=== PATIENT | female | born 2000 | race African-American/Black ===

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

== ENCOUNTER 2021-02-21 10:53 | Emergency (ER) | payer OTHER ==
--- OUTSIDE RECORDS SUMMARY | 2021-02-21 10:56 | XMS REPORT | Continuity of Care Document ---
:2000 Author Organization [facility] t Address [address] [place] [address] [address] [place] [address] Care Team Providers Name Role Phone Mode LUGO, Gene Attending Clinician KARMA MENDEZ Attending Clinician Unavailable KARMA MENDEZ Attending Clinician Unavailable Payers Payer Name Policy Type Policy Number Effective Date Expiration Date [address] [place] [employer] [id number] 2019 HEALTH 00:00:00 [facility] [id number] 2013 [facility] 00:00:00 Problems This patient has no known problems. Allergies, Adverse Reactions, Alerts Allergy Allergy Status Severity Reaction(s) Onset Inactive Treating Comm ents Source Name Type Date Date Clinician NO KNOWN Drug Active [facility] Medications This patient has no known medications. Procedures This patient has no known procedures. Encounters Start End Encounter Admission Attending Care Care Encounter Source Date/Time Date/Time Type Type Clinicians Facility Department ID 2020-06-06 2020-06-06 Telephone [facility] [id number] 00:00:00 00:00:00 Treu Garcia [id number] Yee [id number] [facility] [id number] [address] 2020-06-04 2020-06-04 [facility] [id number] 14:59:14 23:59:00 Encounter True Garcia [id number] eYe [id number] [place] [id number] 2020-06-04 2020-06-04 Outpatient TRUE MENDEZ [facility] [id number] Univers 15:00:00 15:00:00 TRUE MENDEZ [id number] [facility] 2020-06-04 2020-06-04 Outpatient TRUE STAFFORD [facility] [id number] [facility] 00:00:00 00:00:00 TRUE MENDEZ [facility] 2020-05-23 2020-05-23 Office Mode [facility] [id number] 10:21:54 12:02:57 Visit True Garcia [id number] [place] [id number] [place] [id number] [facility] 092 [facility] 2020-05-23 2020-05-23 Outpatient TRUE STAFFORD [facility] [id number] [facility] 10:00:00 10:00:00 TRUE MENDEZ [facility] Results This patient has no known results.
[2021-02-21] MEDS ORDERED: ONDANSETRON 4 MG/2 ML VIAL ONE (11:04)
[2021-02-21 11:08] LABS: Urine Blood Negative (Negative); Urine Glucose Negative (Negative); Urine Protein Trace (Negative); Urine Specific Gravity >=1.030 (1.005-1.030)
[2021-02-21 12:24] LABS: Protime INR 1.08
[2021-02-21 12:30] LABS: Absolute Lymphocytes (CBC) 0.3 K/uL (0.7-4.9); Basophils % 0.7 % (0-1.3); Hematocrit 40.3 % (36.0-45.0); Lymphocytes % 2.3 % (15.3-44.8); MPV 8.1 fL (7.6-11.3); RBC Red Blood Cell Count 4.98 M/uL (3.86-4.86)
[2021-02-21 12:47] LABS: ALT/SGPT 55 U/L (12-78); AST/SGOT 42 U/L (15-37); Albumin 3.9 g/dL (3.4-5.0); Alkaline Phosphatase 105 U/L (45-117); BUN Blood Urea Nitrogen 16 mg/dL (7-18); Bicarbonate 27 mmol/L (21-32); Bilirubin Direct 0.1 mg/dL (0-0.2); Bilirubin Total 0.8 mg/dL (0.2-1.0); Glucose Level 108 mg/dL (74-106); Lipase 58 U/L (73-393); Magnesium 2.2 mg/dL (1.8-2.4); NT PRO-BNP 10 pg/mL (<125); Potassium 4.3 mmol/L (3.5-5.1); Protein, Total 8.6 g/dL (6.4-8.2); Sodium Level 139 mmol/L (136-145); Troponin (Emerg Dept Use Only) < 0.02 ng/mL (0.0-0.045)
[2021-02-21 13:10] LABS: Blood Morphology Comment NOT SEEN (NOT SEEN); Platelet Estimate ADEQ
[2021-02-21] MEDS ORDERED: NA CHLORIDE 0.9% 1,000 ML ONE (13:32)
--- NOTE | 2021-02-21 14:18 | ER ---
Nurse's Notes [facility] Name: Oksana Horn Age: 20 yrs Sex: Female : 2000 Arrival Date: 02/21/2021 Time: 10:57 Bed 15 Private MD: Diagnosis: Syncope;Vomiting;Diarrhea Presentation: 02/21 10:58 Chief complaint: EMS states: Pt had syncopal episode while at work. [employer] [address] pt was jh6 alert on their arrival. Unknown length of loc. Coronavirus screen: Vaccine status: Patient reports being unvaccinated. Client denies travel out of the [place] in the last 14 days. Ebola Screen: Patient negative for fever greater than or equal to 101.5 degrees Fahrenheit, and additional compatible Ebola Virus Disease symptoms. Initial Sepsis Screen: Does the patient meet any 2 criteria? No. Patient's initial sepsis screen is negative. Does the patient have a suspected source of infection? No. Patient's initial sepsis screen is negative. Risk Assessment: Do you want to hurt yourself or someone else? Patient reports no desire to harm self or others. Onset of symptoms was February 21, 2021. 10:58 Method Of Arrival: EMS: [facility] 10:58 Acuity: FR[place] 3 6 Triage Assessment: 11:01 General: Appears in no apparent distress. comfortable, well groomed, well developed, jh6 well nourished, Behavior is calm, cooperative. Pain: Complains of pain in epigastric area Pain does not radiate. Pain currently is 3 out of 10 on a pain scale. Quality of pain is described as aching. 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 - Social history:: Smoking status: Patient denies any tobacco usage or history of. Screenin:00 Abuse screen: Denies threats or abuse. Nutritional screening: No deficits noted. [facility] Tuberculosis screening: No symptoms or risk factors identified. Fall Risk None identified. Assessment: 11:02 General: Appears in no apparent distress. comfortable, well groomed, Behavior is calm, jh6 cooperative. Pain: Complains of pain in epigastric area Pain currently is 3 out of 10 on a pain scale. Is continuous, Aggravated by eating, drinking. GI: Reports cramping, diarrhea, nausea. 12:30 Reassessment: Patient is alert, oriented x 3, equal unlabored respirations, skin 6 warm/dry/pink. Patient denies pain at this time. Patient states symptoms have improved. No longer feeling nauseated. 14:08 Reassessment: Patient and/or family updated on plan of care and expected duration. Pain [facility] level reassessed. Pt able to eat crackers and reports no nasuea at this time. Iv to rt ac infiltration, made aware. Vital Signs: 10:58 BP 124 / 51; Pulse 77; Resp 18; Temp 98.3(O); Pulse Ox 100% ; Weight 89.81 kg; Height 5 [facility] ft. 3 in. (160.02 cm); Pain 3/10; 12:35 BP 113 / 56; Pulse 73; Resp 18; Pulse Ox 100% ; 6 14:13 BP 112 / 54; Pulse 72; Resp 16; Pulse Ox 99% ; Pain 1/10; jh6 10:58 Body Mass Index 35.07 (89.81 kg, 160.02 cm) [facility] ED Course: 10:57 Patient arrived in ED. [facility] 10:57 Shivani Bone, KATHIA is Primary Nurse. [facility] 10:58 Wisam Duffy PA is PHCP. [facility] 10:58 Quinten Hoang MD is Attending Physician. [facility] 11:01 Triage completed. [facility] 11:11 Patient has correct armband on for positive identification. Placed in gown. Bed in low 5 position. Call light in reach. Side rails up X 1. Adult w/ patient. Warm blanket given. ekg monitor tech on. Pulse ox on. NIBP on. 11:11 EKG done, by ED staff, reviewed by Wisam SHEFFIELD. [facility] 11:30 Inserted saline lock: 22 gauge in right antecubital area, using aseptic technique. [facility] 12:46 Basic Metabolic Panel Sent. [facility] 12:46 LFT's Sent. [facility] 12:46 Magnesium Sent. [facility] 12:46 NT PRO-BNP Sent. [facility] 12:46 Troponin (emerg Dept Use Only) Sent. [facility] 12:46 Initial lab(s) drawn, by powerhouse laborer, Urine collected: clean catch specimen, clear. [facility] 14:00 No provider procedures requiring assistance completed. IV discontinued, intact, [facility] bleeding controlled, Pressure dressing applied. 14:42 Arm band placed on right wrist. [facility] Administered Medications: 14:43 Discontinued: NS 0.9% 1000 ml IV at 1 bolus Per protocol; 1000 mL bolus [facility] 11:32 Drug: Zofran (Ondansetron) 4 mg Route: IVP; Site: right antecubital; [facility] 13:39 Drug: NS 0.9% 1000 ml Route: IV; Rate: 1 bolus; Site: right antecubital; Output: 11:03 Urine: 30ml; Total: 30ml. [facility] Outcome: 14:17 Discharge ordered by . max 14:42 Discharged to home ambulatory. [facility] 14:42 Condition: improved 14:42 Discharge instructions given to patient, Instructed on discharge instructions, medication usage, Demonstrated understanding of instructions, medications, Prescriptions given X 1. 14:43 Patient left the ED. [facility] Signatures: Wisam Duffy PA PA jmm Smirch, Shelby, KATHIA RN Mariana Hopper [facility] Shivani Bone RN RN [facility]
--- NOTE | 2021-02-21 14:19 | EDPHYS ---
Physician Documentation [facility] Name: Oksana Horn Age: 20 yrs Sex: Female : 2000 Arrival Date: 02/21/2021 Time: 10:57 Bed 15 Private MD: ED Physician Quinten Hoang HPI: 02/21 10:59 This 20 yrs old Black Female presents to ER via Unassigned with complaints of vomiting. jmm 10:59 The patient presents to the emergency department with nausea, vomiting, diarrhea. jmm Onset: The symptoms/episode began/occurred gradually, 1 day(s) ago. Possible causes: antibiotics, doxycycline . The symptoms are aggravated by nothing. The symptoms are alleviated by nothing. Associated signs and symptoms: Pertinent positives: syncope. The patient has not experienced similar symptoms in the past. 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 - Social history:: Smoking status: Patient denies any tobacco usage or history of. ROS: 10:59 Constitutional: Negative for fever, chills, and weight loss, Cardiovascular: Negative jmm for chest pain, palpitations, and edema, Respiratory: Negative for shortness of breath, cough, wheezing, and pleuritic chest pain. 10:59 Abdomen/GI: Positive for nausea and vomiting, diarrhea. 10:59 Neuro: Positive for syncope. 10:59 All other systems are negative. Exam: 10:59 Constitutional: This is a well developed, well nourished patient who is awake, alert, jmm and in no acute distress. Head/Face: atraumatic. Eyes: EOMI, no conjunctival erythema appreciated ENT: Moist Mucus Membranes Neck: Trachea midline, Supple Chest/axilla: Normal chest wall appearance and motion. Cardiovascular: Regular rate and rhythm. No edema appreciated Respiratory: Normal respirations, no respiratory distress appreciated Abdomen/GI: Non distended, soft Back: Normal ROM Skin: General appearance color normal MS/ Extremity: Moves all extremities, no obvious deformities appreciated, no edema noted to the lower extremities Neuro: Awake and alert, normal gait Psych: Behavior is normal, Mood is normal, Patient is cooperative and pleasant Vital Signs: 10:58 BP 124 / 51; Pulse 77; Resp 18; Temp 98.3(O); Pulse Ox 100% ; Weight 89.81 kg; Height 5 [facility] ft. 3 in. (160.02 cm); Pain 3/10; 12:35 BP 113 / 56; Pulse 73; Resp 18; Pulse Ox 100% ; jh6 14:13 BP 112 / 54; Pulse 72; Resp 16; Pulse Ox 99% ; Pain 1/10; 6 10:58 Body Mass Index 35.07 (89.81 kg, 160.02 cm) [facility] MDM: 10:58 Patient medically screened. [facility] 14:16 Data reviewed: vital signs, nurses notes. Counseling: I had a detailed discussion with max the patient and/or guardian regarding: the historical points, exam findings, and any diagnostic results supporting the discharge/admit diagnosis, lab results, the need for outpatient follow up, to return to the emergency department if symptoms worsen or persist or if there are any questions or concerns that arise at home. ED course: Patient states feeling much better. Abdomen was reexamined, no pain on palpation. Patient states having some mild left pelvic pain but states she has similar pain in the past. I discussed pros and cons of CT imaging for further evaluation. Patient elected not to have CT imaging done. Due to vomiting and diarrhea, most likely a gastroenteritis. Patient given early appendicitis return precautions. Patient understood and agrees plan of care.. 02/21 10:59 Order name: Basic Metabolic Panel [facility] 02/21 10:59 Order name: CBC with Diff; Complete Time: 13:16 [facility] 02/21 10:59 Order name: LFT's; Complete Time: 13:04 [facility] 02/21 10:59 Order name: Magnesium; Complete Time: 13:04 [facility] 02/21 10:59 Order name: NT PRO-BNP; Complete Time: 13:04 [facility] 02/21 10:59 Order name: PT-INR; Complete Time: 12:26 [facility] 02/21 10:59 Order name: Troponin (emerg Dept Use Only); Complete Time: 13:04 [facility] 02/21 10:59 Order name: EKG; Complete Time: 11:00 [facility] 02/21 10:59 Order name: Lipase; Complete Time: 13:04 [facility] 02/21 10:59 Order name: Basic Metabolic Panel; Complete Time: 13:04 [facility] 02/21 11:08 Order name: Urine Dipstick-Ancillary; Complete Time: 11:11 [facility] 02/21 13:10 Order name: Manual Differential; Complete Time: 13:16 [facility] 02/21 10:59 Order name: Cardiac monitoring; Complete Time: 11:11 [facility] 02/21 10:59 Order name: EKG - Nurse/Tech; Complete Time: 11:10 [facility] 02/21 10:59 Order name: IV Saline Lock; Complete Time: 12:46 [facility] 02/21 10:59 Order name: Labs collected and sent; Complete Time: 12:46 [facility] 02/21 10:59 Order name: O2 Per Protocol; Complete Time: 11:14 [facility] 02/21 10:59 Order name: O2 Sat Monitoring; Complete Time: 11:14 [facility] 02/21 11:07 Order name: Urine Dipstick-Ancillary (obtain specimen); Complete Time: 11:10 [facility] 02/21 11:07 Order name: Urine Test (obtain specimen); Complete Time: 11:10 [facility] Administered Medications: 14:43 Discontinued: NS 0.9% 1000 ml IV at 1 bolus Per protocol; 1000 mL bolus [facility] 11:32 Drug: Zofran (Ondansetron) 4 mg Route: IVP; Site: right antecubital; jh6 13:39 Drug: NS 0.9% 1000 ml Route: IV; Rate: 1 bolus; Site: right antecubital; Disposition: 16:35 Co-signature as Attending Physician, Quinten Hoang MD I agree with the assessment and rn plan of care. Attestation: The patient's history, exam findings, diagnostics, and a summary of any interventions or procedures was reviewed in detail with Wisam SHEFFIELD. Disposition Summary: 02/21/21 14:17 Discharge Ordered Location: Home [facility] Condition: Stable [facility] Diagnosis - Syncope jmm - Vomiting jmm - Diarrhea jmm Followup: jmm - With: Private Physician - When: 2 - 3 days - Reason: Recheck today's complaints, Continuance of care, Re-evaluation by your physician Discharge Instructions: - Discharge Summary Sheet jmm - Diarrhea, Adult jmm - Syncope jmm - Vomiting, Adult jmm Forms: - Medication Reconciliation Form [facility] - Thank You Letter [facility] - Antibiotic Education [facility] - Prescription Opioid Use [facility] Prescriptions: - ondansetron 4 mg Oral tablet,disintegrating - place 1 tablet by TRANSLINGUAL route every 4-6 hours; 20 tablet; Refills: 0, [facility] Product Selection Permitted Signatures: Dispatcher [employer] EDWisam Nguyen PA PA jmm Nieto, Roman, MD MD rn Smirch, Shelby, RN RN ss Shivani Bone RN RN jh6
[2021-02-21 14:52] VITALS: TEMP 98.3
[2021-02-21 14:56] VITALS: BP 112/54; O2SAT 99
--- NOTE | 2021-02-25 08:16 | EKG ---
Test Date: 2021-02-21 Test Time: 11:07:29 Bag Machine Helper: AMBREEN MEASUREMENT RESULTS: Intervals: Rate: 80 GA: 154 QRSD: 84 QT: 358 QTc: 412 Struthers: P: 38 GA: 154 QRS: 84 T: 44 INTERPRETIVE STATEMENTS: Normal sinus rhythm Normal ECG Compared to ECG 06/17/2019 03:01:16 No significant changes Electronically Signed On 02-25-21 08:04:49 TACK MAKER by Reggie Ashby
== END 2021-02-21 14:43 | disposition home or self-care (01) ==
LOC: ER 10:53
DX: R11.10 Vomiting, unspecified (principal); R19.7 Diarrhea, unspecified
CPT/HCPCS: 93005; 85025; 80048; 36415; 83735; 85610; 80076; 81003; 84484; 83690; 83880; 96374; 99284; J7030; J2405

== ENCOUNTER 2021-06-14 15:41 | Emergency (ER) | payer OTHER ==
--- OUTSIDE RECORDS SUMMARY | 2021-06-14 16:30 | XMS REPORT | Continuity of Care Document ---
:2000 Author Organization [facility] t Address [address] [place] [address] Care Team Providers Name Role Phone Karma Coello MD Attending Clinician KARMA COELLO Attending Clinician Unavailable KARMA COELLO Attending Clinician Unavailable Payers Payer Name Policy Type Policy Number Effective Date Expiration Date [address] [place] [employer] [id number] 2019 HEALTH 00:00:00 [facility] [id number] 2013 [facility] 00:00:00 Problems This patient has no known problems. Allergies, Adverse Reactions, Alerts Allergy Allergy Status Severity Reaction(s) Onset Inactive Treating Comm ents Source Name Type Date Date Clinician NO KNOWN Drug Active [facility] Medications This patient has no known medications. Procedures This patient has no known procedures. Encounters Start End Encounter Admission Attending Care Care Encounter Source Date/Time Date/Time Type Type Clinicians Facility Department ID 2020-06-06 2020-06-06 Telephone [facility] [id number] 00:00:00 00:00:00 True Garcia [id number] [place] [id number] [place] [id number] [address] 2020-06-04 2020-06-04 [facility] [id number] 14:59:14 23:59:00 Encounter True Garcia [id number] Y[place] [id number] [place] [id number] 2020-06-04 2020-06-04 Outpatient TRUE COELLO [facility] [id number] Univers 15:00:00 15:00:00 TRUE COELLO [id number] [facility] 2020-06-04 2020-06-04 Outpatient TRUE STAFFORD [facility] [id number] [facility] 00:00:00 00:00:00 TRUE COELLO [facility] 2020-05-23 2020-05-23 Office Mode [facility] [id number] 10:21:54 12:02:57 Visit True Garcia [id number] [place] [id number] [facility] [id number] [facility] 2020-05-23 2020-05-23 Outpatient TRUE STAFFORD [facility] [id number] [facility] 10:00:00 10:00:00 TRUE COELLO [facility] Results This patient has no known results.
[2021-06-14 17:39] LABS: Absolute Lymphocytes (CBC) 2.4 K/uL (0.7-4.9); Hematocrit 38.8 % (36.0-45.0); Lymphocytes % 28.1 % (15.3-44.8); RBC Red Blood Cell Count 4.68 M/uL (3.86-4.86)
[2021-06-14 17:58] LABS: Urine Blood Negative (Negative); Urine Glucose Negative (Negative); Urine Protein Negative (Negative); Urine Specific Gravity 1.025 (1.005-1.030)
--- NOTE | 2021-06-14 18:17 | RAD REPORT ---
EXAM DESCRIPTION: CTAbdomen Pelvis W Contrast - 06/14/2021 6:07 pm CLINICAL HISTORY: right lower abdominal pain COMPARISON: <Comparisons> TECHNIQUE: CT of the abdomen and pelvis was performed. All CT scans are performed using dose optimization technique as appropriate and may include automated exposure control or mA/KV adjustment according to patient size. FINDINGS: Lower chest: No acute abnormality. Liver: No acute abnormality or suspicious lesions. Biliary: No biliary ductal dilatation. Stomach: No significant focal abnormality. Duodenum: No significant focal abnormality. Pancreas: No significant abnormality. Spleen: No significant abnormality. Adrenal: No suspicious lesions. Kidney/ureter: No hydronephrosis. No renal calculi. Retroperitoneum: No retroperitoneal adenopathy. Vascular: No aneurysm. Bowel: No significant focal abnormality. Appendix is within normal limits . Peritoneum: No ascites or free air. Bladder: Grossly unremarkable. Reproductive: No adnexal masses. Bones: No acute fracture. Other: n/a IMPRESSION: No acute intra-abdominal or pelvic finding. Normal appendix.
[2021-06-14 18:54] LABS: Urine Specific Gravity/Preg 1.025 (1.005-1.030)
--- NOTE | 2021-06-14 19:02 | RAD REPORT ---
EXAM DESCRIPTION: US - Pelvis Complete - 06/14/2021 6:46 pm CLINICAL HISTORY: right lower pain Pelvic pain. COMPARISON: PELVIC COMPLETE dated 08/07/2014 FINDINGS: The uterus is normal in size, shape and echotexture. The uterus measures 6.2 cm The endometrial stripe measures 5 mm, normal Both ovaries are normal in size, shape and echotexture. The right ovary measures 3.5 x 2.1 x 2.3 cm with volume of 8.7 mL. The left ovary measures 2.8 x 2.1 x 2.9 cm with volume of 9.1 mL. No ovarian or parovarian lesions. No adnexal masses. Normal Doppler blood flow was demonstrated to both ovaries. No significant pelvic ascites. IMPRESSION: Unremarkable study.Bilateral ovarian blood flow. The patient refused transvaginal ultras ound.
--- NOTE | 2021-06-14 19:25 | EDPHYS ---
Physician Documentation [facility] Name: Oksana Horn Age: 21 yrs Sex: Female : 2000 Arrival Date: 06/14/2021 Time: 15:45 Bed 15 Private MD: DG Physician Chase Lagos HPI: 06/14 16:55 This 21 yrs old Black Female presents to ER via Ambulatory with complaints of L side jmm Pain. 16:55 The patient presents with abdominal pain. Onset: The symptoms/episode began/occurred jmm gradually, 1 month(s) ago. The symptoms do not radiate. Associated signs and symptoms: Pertinent negatives: nausea and vomiting, diarrhea, fever. The symptoms are described as achy. Modifying factors: The symptoms are alleviated by nothing, the symptoms are aggravated by nothing. The patient has not experienced similar symptoms in the past. 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 - Social history:: Smoking status: Patient denies any tobacco usage or history of. ROS: 16:55 Constitutional: Negative for fever, chills, and weight loss, Cardiovascular: Negative jmm for chest pain, palpitations, and edema, Respiratory: Negative for shortness of breath, cough, wheezing, and pleuritic chest pain. 16:55 Abdomen/GI: Positive for abdominal pain. 16:55 All other systems are negative. Exam: 16:55 Constitutional: This is a well developed, well nourished patient who is awake, alert, jmm and in no acute distress. Head/Face: atraumatic. Eyes: EOMI, no conjunctival erythema appreciated ENT: Moist Mucus Membranes Neck: Trachea midline, Supple Chest/axilla: Normal chest wall appearance and motion. Cardiovascular: Regular rate and rhythm. No edema appreciated Respiratory: Normal respirations, no respiratory distress appreciated 16:55 Back: Normal ROM Skin: General appearance color normal MS/ Extremity: Moves all extremities, no obvious deformities appreciated, no edema noted to the lower extremities Neuro: Awake and alert Psych: Behavior is normal, Mood is normal, Patient is cooperative and pleasant 16:55 Abdomen/GI: Inspection: abdomen appears normal, Bowel sounds: normal, Palpation: soft, mild abdominal tenderness, in the suprapubic area and right lower quadrant. Vital Signs: 16:07 BP 129 / 51; Pulse 67; Resp 18; Temp 98.2; Pulse Ox 100% ; Height 5 ft. 3 in. (160.02 ww cm); 19:00 BP 115 / 60 LA Supine (auto/reg); Pulse 70 MON; Resp 18 S; Temp 98(O); Pulse Ox 100% ; tk1 Pain 4/10; MDM: 16:55 Patient medically screened. maddie 19:22 Data reviewed: vital signs, nurses notes. Counseling: I had a detailed discussion with max the patient and/or guardian regarding: the historical points, exam findings, and any diagnostic results supporting the discharge/admit diagnosis, lab results, radiology results, the need for outpatient follow up, to return to the emergency department if symptoms worsen or persist or if there are any questions or concerns that arise at home. ED course: Patient is alert and nontoxic in appearance in the ED. Patient did state that she has very irregular cycles. Pain appears to be more likely pelvic in origin. Denies any vaginal discharge or concerns for STI. I advised the patient to follow-up with gynecology for further evaluation otherwise given early appendicitis return precautions. Patient understood and agrees plan of care.. 06/14 17:04 Order name: Basic Metabolic Panel [facility] 06/14 17:04 Order name: CBC with Diff; Complete Time: 17:46 [facility] 06/14 17:58 Order name: Urine Dipstick-Ancillary; Complete Time: 18:01 [facility] 06/14 17:04 Order name: IV Saline Lock; Complete Time: 17:42 [facility] 06/14 17:04 Order name: Labs collected and sent; Complete Time: 17:42 [facility] 06/14 17:04 Order name: Urine Dipstick-Ancillary (obtain specimen); Complete Time: 19:03 [facility] 06/14 17:04 Order name: Urine Test (obtain specimen); Complete Time: 19:03 [facility] 06/14 17:04 Order name: CT Abd/Pelvis - IV Contrast Only; Complete Time: 18:29 [facility] 06/14 17:05 Order name: US Pelvis Complete; Complete Time: 19:05 [facility] 06/14 18:11 Order name: Test Urine - POC; Complete Time: 19:05 sp Administered Medications: No medications were administered Disposition Summary: 06/14/21 19:23 Discharge Ordered Location: Home [facility] Condition: Stable jmm Diagnosis - Lower abdominal pain, unspecified jmm Followup: jm - With: Tiffany Pena MD - When: 2 - 3 days - Reason: Recheck today's complaints, Continuance of care, Re-evaluation by your physician Discharge Instructions: - Discharge Summary Sheet jmm - Abdominal Pain, Adult jmm - Pelvic Pain, Female jmm - Form - Excuse from Work, School, or Physical Activity sp - Form - Return To Work sp Forms: - Medication Reconciliation Form [facility] - Thank You Letter [facility] - Antibiotic Education [facility] - Prescription Opioid Use [facility] Signatures: Dispatcher [employer] Chase Valdez MD MD cha Mickail, Joel, PA PA jmm Wood, Whitney, RN RN ww
--- NOTE | 2021-06-14 19:25 | ER ---
Nurse's Notes [facility] Name: Oksana Horn Age: 21 yrs Sex: Female : 2000 Arrival Date: 06/14/2021 Time: 15:45 Bed 15 Private MD: Diagnosis: Lower abdominal pain, unspecified Presentation: 06/14 16:07 Chief complaint: Patient states: Lower right sided abdominal pain that started a few ww months ago. Coronavirus screen: Vaccine status: Patient reports being unvaccinated. Client denies travel out of the [place] in the last 14 days. Ebola Screen: Patient denies travel to an Ebola-affected area in the 21 days before illness onset. Initial Sepsis Screen: Does the patient meet any 2 criteria? No. Patient's initial sepsis screen is negative. Does the patient have a suspected source of infection? No. Patient's initial sepsis screen is negative. Risk Assessment: Do you want to hurt yourself or someone else? Patient reports no desire to harm self or others. Onset of symptoms is unknown. 16:07 Method Of Arrival: Ambulatory ww 16:07 Acuity: FRANCE 4 ww 16:07 Acuity: FRANCE 3 ww Triage Assessment: 16:08 General: Appears in no apparent distress. comfortable, Behavior is calm, cooperative. ww Pain: Complains of pain in right lower quadrant. EENT: No signs and/or symptoms were reported regarding the EENT system. Neuro: Level of Consciousness is awake, alert, obeys commands, Oriented to person, place, time, situation, Moves all extremities. Gait is steady, Speech is normal. Cardiovascular: Patient's skin is warm and dry. Respiratory: Airway is patent Respiratory effort is even, unlabored, Respiratory pattern is regular, symmetrical. GI: Reports lower abdominal pain. : No signs and/or symptoms were reported regarding the genitourinary system. Derm: Skin is intact, Skin is pink, warm \T\ dry. 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 - Social history:: Smoking status: Patient denies any tobacco usage or history of. Screenin:03 Abuse screen: Denies threats or abuse. Denies injuries from another. Nutritional cb5 screening: No deficits noted. Tuberculosis screening: No symptoms or risk factors identified. 19:00 Fall Risk None identified. tk1 Assessment: 16:50 General: Appears in no apparent distress. distressed, comfortable, Behavior is calm, cb5 cooperative, appropriate for age. Pain: Complains of pain in abdomen and right lower quadrant Pain currently is 4 out of 10 on a pain scale. Neuro: No deficits noted. Level of Consciousness is awake, alert, obeys commands, Oriented to person, place, time, situation, Appropriate for age. Cardiovascular: No deficits noted. Respiratory: No deficits noted. Airway is patent Trachea midline. GI: Parent/caregiver reports the patient having pain, LRQ pain. : Denies. EENT: No deficits noted. Derm: No deficits noted. Musculoskeletal: No deficits noted. 18:43 Reassessment: Patient and/or family updated on plan of care and expected duration. Pain cb5 level reassessed. 19:00 General: Appears in no apparent distress. distressed, comfortable, obese, well groomed, tk1 well developed, well nourished, Behavior is calm, cooperative, appropriate for age. Pain: Complains of pain in right lower quadrant Pain does not radiate. Pain currently is 4 out of 10 on a pain scale. Quality of pain is described as aching. Neuro: Level of Consciousness is awake, alert, obeys commands, Oriented to person, place, time, situation, Appropriate for age. Cardiovascular: Capillary refill < 3 seconds is brisk in bilateral fingers. Respiratory: No deficits noted. Airway is patent Trachea midline Respiratory effort is even, unlabored, Respiratory pattern is regular, symmetrical. GI: Abdomen is round non-distended, Bowel sounds present X 4 quads. Abd is soft and non tender X 4 quads. : No deficits noted. No signs and/or symptoms were reported regarding the genitourinary system. EENT: No deficits noted. No signs and/or symptoms were reported regarding the EENT system. Derm: No deficits noted. No signs and/or symptoms reported regarding the dermatologic system. Musculoskeletal: No deficits noted. No signs and/or symptoms reported regarding the musculoskeletal system. 19:30 Reassessment: D/C per MD order. Discharge instructions given to patient. Verbalized tk1 understanding. Vital Signs: 16:07 BP 129 / 51; Pulse 67; Resp 18; Temp 98.2; Pulse Ox 100% ; Height 5 ft. 3 in. (160.02 ww cm); 19:00 BP 115 / 60 LA Supine (auto/reg); Pulse 70 MON; Resp 18 S; Temp 98(O); Pulse Ox 100% ; tk1 Pain 4/10; ED Course: 15:45 Patient arrived in ED. ds1 16:08 Triage completed. ww 16:08 Arm band placed on right wrist. ww 16:40 Patient placed in an exam room, on a stretcher. ll1 16:44 Wisam Duffy PA is PHCP. jmm 16:44 Chase Lagos MD is Attending Physician. jmm 16:59 Cindy Alicea, KATHIA is Primary Nurse. cb5 17:03 Bed in low position. Call light in reach. Side rails up X2. cb5 17:03 No provider procedures requiring assistance completed. cb5 17:40 Inserted saline lock: 22 gauge in left antecubital area, using aseptic technique. Blood jd3 collected. 17:42 Basic Metabolic Panel Sent. cb5 17:42 Hepatic Function Sent. cb5 17:42 Lipase Sent. cb5 17:42 Basic Metabolic Panel Sent. cb5 18:08 CT Abd/Pelvis - IV Contrast Only In Process Unspecified. EDMS 18:46 US Pelvis Complete In Process Unspecified. EDMS 19:00 Awaiting radiology results. tk1 19:00 Pulse ox on. NIBP on. tk1 19:00 IV is patent, is intact, with fluids infusing freely, without good blood return. tk1 19:10 Report given to Bethanie Malone cb5 19:23 Tiffany Pena MD is Referral Physician. jmm 19:30 IV discontinued, intact, bleeding controlled, No redness/swelling at site. Pressure tk1 dressing applied. Administered Medications: No medications were administered Outcome: 19:23 Discharge ordered by . jmm 19:30 Discharged to home ambulatory. tk1 19:30 Condition: stable 19:30 Discharge instructions given to patient, Instructed on discharge instructions, follow up and referral plans. Demonstrated understanding of instructions, follow-up care. 20:27 Patient left the ED. tk1 Signatures: Dispatcher [employer] EDMS Wisam Duffy PA PA jmm Sanford, Demi ds1 Dennis Krueger RN RN jEdward Aguiar RN RN ll1 Mahsa Mathis RN RN Kira Moise tk1 Cindy Alicea, RN RN cb5 Corrections: (The following items were deleted from the chart) 20:25 20:23 Reassessment: D/C per MD order. Discharge instructions given to patient. tk1 Verbalized understanding. tk1
[2021-06-14 21:05] VITALS: O2SAT 100
[2021-06-14 21:07] VITALS: BP 115/60; TEMP 98
== END 2021-06-14 20:27 | disposition home or self-care (01) ==
LOC: ER 15:41
DX: R10.30 Lower abdominal pain, unspecified (principal)
CPT/HCPCS: 85025; 36415; 81025; 81003; 74177; 76856; 99284; Q9967

== ENCOUNTER 2021-08-10 12:38 | Emergency (ER) | payer OTHER ==
--- OUTSIDE RECORDS SUMMARY | 2021-08-10 12:42 | XMS REPORT | Continuity of Care Document ---
:2000 Author Organization [facility] t Address [address] [place] [address] Care Team Providers Name Role Phone Karma Coello MD Attending Clinician KARMA COELLO Attending Clinician Unavailable KARMA COELLO Attending Clinician Unavailable Payers Payer Name Policy Type Policy Number Effective Date Expiration Date Indu street [facility] [id number] 2019 [facility] 00:00:00 [facility] [id number] 2013 [facility] 00:00:00 Problems This patient has no known problems. Allergies, Adverse Reactions, Alerts Allergy Allergy Status Severity Reaction(s) Onset Inactive Treating Comm ents Source Name Type Date Date Clinician NO KNOWN Drug Active NPI:[id number] ALLERGIE Class [id number] S Medications This patient has no known medications. Procedures This patient has no known procedures. Encounters Start End Encounter Admission Attending Care Care Encounter Source Date/Time Date/Time Type Type Clinicians Facility Department ID 2020-06-06 2020-06-06 Telephone [place] [id number] 00:00:00 00:00:00 True Garcia [id number] [place] [id number] [facility] [id number] [address] 2020-06-04 2020-06-04 [facility] [id number] 14:59:14 23:59:00 Encounter True Garcia [id number] [place] [id number] [place] [id number] 2020-06-04 2020-06-04 Outpatient TRUE COELLO [facility] [id number] NPI:[id number] 15:00:00 15:00:00 TRUE COELLO [id number] 2020-06-04 Outpatient TRUE STAFFORD [facility] [id number] NPI:[id number] 00:00:00 00:00:00 TRUE COELLO [id number] 2020-05-23 Office Mode [facility] [id number] 10:21:54 12:02:57 Visit True Garcia [id number] [place] [id number] [facility] [id number] [facility] 2020-05-23 2020-05-23 Outpatient TRUE STAFFORD [facility] [id number] NPI:[id number] 10:00:00 10:00:00 TRUE COELLO [id number] Results This patient has no known results.
[2021-08-10 13:27] LABS: Urine Blood Negative (Negative); Urine Glucose Negative (Negative); Urine Protein Negative (Negative); Urine pH 8.5 (5.0-7.0)
[2021-08-10 13:35] LABS: Absolute Lymphocytes (CBC) 2.1 K/uL (0.7-4.9); Hematocrit 35.2 % (36.0-45.0); Lymphocytes % 27.1 % (15.3-44.8); MPV 7.7 fL (7.6-11.3); RBC Red Blood Cell Count 4.25 M/uL (3.86-4.86)
[2021-08-10 13:52] LABS: Potassium 3.9 mmol/L (3.5-5.1)
--- NOTE | 2021-08-10 15:13 | RAD REPORT ---
EXAM DESCRIPTION: RAD - Chest Single View - 08/10/2021 2:53 pm CLINICAL HISTORY: syncope Chest pain. COMPARISON: Chest Pa And Lat (2 Views) dated 06/01/2019; CHEST PA AND LAT 2 VIEW dated 06/27/2011; TAWNY ST PA AND LAT 2 VIEW dated 11/19/2010; CHEST PA AND LAT 2 VIEW dated 12/22/2009 FINDINGS: Portable technique limits examination quality. The lungs are grossly clear. The heart is normal in size. No displaced fractures. IMPRESSION: No acute intrathoracic process suspected.
--- NOTE | 2021-08-10 15:37 | ER ---
Nurse's Notes [facility] Name: Oksana Horn Age: 21 yrs Sex: Female : 2000 Arrival Date: 08/10/2021 Time: 12:49 Bed 4 Private MD: Diagnosis: Heat syncope Presentation: 08/10 12:50 Chief complaint: EMS states: Toned out for syncopal episode while at work, pt was jl7 assisted to the floor by coworkers, A\T\Ox4 and reports feeling hot prior to episode. Coronavirus screen: At this time, the client does not indicate any symptoms associated with coronavirus-19. Ebola Screen: No symptoms or risks identified at this time. Initial Sepsis Screen: Does the patient meet any 2 criteria? No. Patient's initial sepsis screen is negative. Does the patient have a suspected source of infection? No. Patient's initial sepsis screen is negative. Risk Assessment: Do you want to hurt yourself or someone else? Patient reports no desire to harm self or others. 12:50 Method Of Arrival: EMS: [facility] jl7 12:50 Acuity: FRANCE 3 jl7 12:54 Onset of symptoms was August 10, 2021 at 12:00. Care prior to arrival: Medication(s) jl7 given: Normal saline infusion, 500 mL, IV initiated. 22 GA, in the right hand, Glucose check: 92. Triage Assessment: 12:53 General: Appears in no apparent distress. comfortable, Behavior is calm, cooperative, jl7 appropriate for age. Pain: Denies pain. Neuro: Level of Consciousness is awake, alert, obeys commands, Oriented to person, place, time, situation, Reports a syncopal episode. Cardiovascular: Patient's skin is warm and dry. Rhythm is regular Chest pain is denied. Respiratory: Airway is patent Respiratory effort is even, unlabored, Respiratory pattern is regular, symmetrical, Denies shortness of breath. GI: No signs and/or symptoms were reported involving the gastrointestinal system. : No signs and/or symptoms were reported regarding the genitourinary system. Derm: Skin is pink, warm \T\ dry. 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 - Social history:: Smoking status: Patient denies any tobacco usage or history of. Screenin:00 Abuse screen: Denies threats or abuse. Denies injuries from another. Nutritional bp screening: No deficits noted. Tuberculosis screening: No symptoms or risk factors identified. Fall Risk None identified. Assessment: 13:00 General: SEE TRIAGE NOTE. bp 14:23 Reassessment: No changes from previously documented assessment. Patient and/or family bp updated on plan of care and expected duration. Pain level reassessed. ALL CURRENT ORDERS COMPLETED Patient states symptoms have improved. Vital Signs: 12:50 BP 122 / 68; Pulse 78; Resp 15; Temp 97.9; Pulse Ox 100% on R/A; Weight 90.72 kg (R); jl7 Height 5 ft. 2 in. (157.48 cm) (R); Pain 0/10; 14:22 BP 132 / 87; Pulse 60; Resp 16; Pulse Ox 100% ; bp 12:50 Body Mass Index 36.58 (90.72 kg, 157.48 cm) jl7 ED Course: 12:49 Patient arrived in ED. bp 12:49 Gage Martin RN is Primary Nurse. jl7 12:51 Mathieu Foreman PA is PHCP. jr8 12:51 Chase Lagos MD is Attending Physician. jr8 12:53 Triage completed. jl7 12:53 Arm band placed on right wrist. jl7 13:00 Patient has correct armband on for positive identification. Bed in low position. Call bp light in reach. Side rails up X2. Adult w/ patient. 14:24 Maintain EMS IV. Dressing intact. Good blood return noted. Site clean \T\ dry. Gauge \T\ bp site: 22 GAUGE RIGHT HAND. 14:55 XRAY Chest (1 view) In Process Unspecified. EDMS Administered Medications: No medications were administered Outcome: 15:36 Discharge ordered by . jr8 16:04 Patient left the ED. em1 Signatures: Dispatcher [employer] EDMS Emeka Strauss em1 Mathieu Foreman PA PA jr8 Gage Martin RN RN jl7 Roe Lee, RN RN bp
--- NOTE | 2021-08-10 15:37 | EDPHYS ---
Physician Documentation [facility] Name: Oksana Horn Age: 21 yrs Sex: Female : 2000 Arrival Date: 08/10/2021 Time: 12:49 Bed 4 Private MD: ED Physician Chase Lagos HPI: 08/10 13:10 This 21 yrs old Black Female presents to ER via EMS with complaints of Syncope. jr8 13:10 The patient has experienced syncope, collapsed, lost consciousness. Onset: The jr8 symptoms/episode began/occurred acutely, today. Duration: This was a single episode. Context: occurred at work, occurred while the patient was standing. Associated injury: The patient did not suffer any apparent associated injury. Associated signs and symptoms: Pertinent positives: dizziness. Current symptoms: Currently, the patient is not experiencing any symptoms, the patient feels back to baseline. The patient has experienced a previous episode. The patient has not recently seen a physician. This is a 21-year-old female that presented to the emergency room via EMS after having a syncopal episode while at work. Patient stated that she was hot outside while working had crouched down because she started to feel dizzy and then passed out. Patient stated that she is back to baseline at this point. Has had this once before in the past secondary to heat. Denies any other symptoms at this time.. 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 - Social history:: Smoking status: Patient denies any tobacco usage or history of. ROS: 13:10 Eyes: Negative for injury, pain, redness, and discharge, ENT: Negative for injury, jr8 pain, and discharge, Neck: Negative for injury, pain, and swelling, Cardiovascular: Negative for chest pain, palpitations, and edema, Respiratory: Negative for shortness of breath, cough, wheezing, and pleuritic chest pain, Abdomen/GI: Negative for abdominal pain, nausea, vomiting, diarrhea, and constipation, Back: Negative for injury and pain, MS/Extremity: Negative for injury and deformity, Skin: Negative for injury, rash, and discoloration. 13:10 Neuro: Positive for syncope. Exam: 13:10 Constitutional: This is a well developed, well nourished patient who is awake, alert, jr8 and in no acute distress. Head/Face: Normocephalic, atraumatic. Neck: Trachea midline, no thyromegaly or masses palpated, and no cervical lymphadenopathy. Supple, full range of motion without nuchal rigidity, or vertebral point tenderness. No Meningismus. Cardiovascular: Regular rate and rhythm with a normal S1 and S2. No gallops, murmurs, or rubs. Normal PMI, no JVD. No pulse deficits. Respiratory: Lungs have equal breath sounds bilaterally, clear to auscultation and percussion. No rales, rhonchi or wheezes noted. No increased work of breathing, no retractions or nasal flaring. Abdomen/GI: Soft, non-tender, with normal bowel sounds. No distension or tympany. No guarding or rebound. No evidence of tenderness throughout. Back: No spinal tenderness. No costovertebral tenderness. Full range of motion. Skin: Warm, dry with normal turgor. Normal color with no rashes, no lesions, and no evidence of cellulitis. MS/ Extremity: Pulses equal, no cyanosis. Neurovascular intact. Full, normal range of motion. Neuro: Awake and alert, GCS 15, oriented to person, place, time, and situation. Cranial nerves II-XII grossly intact. Motor strength 5/5 in all extremities. Sensory grossly intact. Cerebellar exam normal. Normal gait. Vital Signs: 12:50 BP 122 / 68; Pulse 78; Resp 15; Temp 97.9; Pulse Ox 100% on R/A; Weight 90.72 kg (R); jl7 Height 5 ft. 2 in. (157.48 cm) (R); Pain 0/10; 14:22 BP 132 / 87; Pulse 60; Resp 16; Pulse Ox 100% ; bp 12:50 Body Mass Index 36.58 (90.72 kg, 157.48 cm) jl7 MDM: 12:51 Patient medically screened. jr8 15:35 Data reviewed: vital signs, nurses notes, lab test result(s), EKG, radiologic studies, jr8 plain films. Data interpreted: Pulse oximetry: on room air is 100 %. Interpretation: normal. Counseling: I had a detailed discussion with the patient and/or guardian regarding: the historical points, exam findings, and any diagnostic results supporting the discharge/admit diagnosis, lab results, radiology results, the need for outpatient follow up, a family practitioner, to return to the emergency department if symptoms worsen or persist or if there are any questions or concerns that arise at home. Response to treatment: the patient's symptoms have resolved after treatment. ED course: Patient at baseline, hemodynamically stable and without any acute findings on labs or EKG or imaging. Recommended that she follow-up with her primary care understood to get worsening point time to come back for further evaluation. Patient good with this at this time.. 08/10 13:02 Order name: Basic Metabolic Panel; Complete Time: 13:55 [facility] 08/10 13:02 Order name: CBC with Diff; Complete Time: 13:40 [facility] 08/10 13:02 Order name: Magnesium; Complete Time: 13:55 [facility] 08/10 13:02 Order name: XRAY Chest (1 view); Complete Time: 15:35 [facility] 08/10 13:27 Order name: Urine Dipstick-Ancillary; Complete Time: 13:35 [facility] 08/10 13:41 Order name: Urine --Ancillary (enter results); Complete Time: 13:55 08/10 13:02 Order name: EKG; Complete Time: 13:03 [facility] 08/10 13:02 Order name: Cardiac monitoring; Complete Time: 13:05 [facility] 08/10 13:02 Order name: EKG - Nurse/Tech; Complete Time: 13:49 08/10 13:02 Order name: IV Saline Lock; Complete Time: 13:29 08/10 13:02 Order name: Labs collected and sent; Complete Time: 13:29 08/10 13:02 Order name: O2 Per Protocol; Complete Time: 13:04 08/10 13:02 Order name: O2 Sat Monitoring; Complete Time: 13:04 08/10 13:02 Order name: Urine Dipstick-Ancillary (obtain specimen); Complete Time: 13:29 08/10 13:02 Order name: Urine Test (obtain specimen); Complete Time: 13:29 jr8 Administered Medications: No medications were administered Disposition Summary: 08/10/21 15:36 Discharge Ordered Location: Home jr8 Problem: new jr8 Symptoms: have improved jr8 Condition: Stable jr8 Diagnosis - Heat syncope jr8 Followup: jr8 - With: Private Physician - When: 1 - 2 days - Reason: Recheck today's complaints, Continuance of care, Re-evaluation by your physician Discharge Instructions: - Discharge Summary Sheet jr8 - Syncope jr8 Forms: - Medication Reconciliation Form jr8 - Thank You Letter jr8 - Antibiotic Education jr8 - Work release form em1 - Prescription Opioid Use jr8 Signatures: Dispatcher [employer] EDMathieu Zhou PA PA jr8 Gage Martin RN RN jl7
[2021-08-10 17:50] VITALS: BP 132/87; O2SAT 100
[2021-08-10 17:52] VITALS: TEMP 97.9
--- NOTE | 2021-08-11 10:20 | EKG ---
Test Date: 2021-08-10 Test Time: 13:49:24 Concrete Block Maker: BP MEASUREMENT RESULTS: Intervals: Rate: 66 NM: 172 QRSD: 84 QT: 384 QTc: 402 [place]: P: 70 NM: 172 QRS: 93 T: 33 INTERPRETIVE STATEMENTS: Normal sinus rhythm Rightward axis Borderline ECG Compared to ECG 02/21/2021 11:07:29 Right-axis deviation now present Electronically Signed On 08-11-21 10:17:40 CDT by Reggie Ashby
== END 2021-08-10 16:04 | disposition home or self-care (01) ==
LOC: ER 12:38
DX: T67.1XXA Heat syncope, initial encounter (principal)
CPT/HCPCS: 36415; 71045; 80048; 81003; 81025; 83735; 85025; 93005; 99283

== ENCOUNTER 2022-02-10 14:32 | Emergency (ER) | payer OTHER ==
--- OUTSIDE RECORDS SUMMARY | 2022-02-10 14:35 | XMS REPORT | Continuity of Care Document ---
:2000 Author Organization [facility] t Address [address] [place] [address] [address] [place] [address] Care Team Providers Name Role Phone MARLEN ESPARZA Primary Care Physician Unavailable True Coello MD Attending Clinician TRUE COELLO Attending Clinician Unavailable TRUE COELLO Attending Clinician Unavailable TRUE COELLO Admitting Clinician Unavailable Payers Payer Name Policy Type Policy Number Effective Date Expiration Date S jad [employer] [id number] 2019 2022 [facility] 00:00:00 00:00:00 Problems This patient has no known problems. Allergies, Adverse Reactions, Alerts Allergy Allergy Status Severity Reaction(s) Onset Inactive Treating Comm ents Source Name Type Date Date Clinician NO KNOWN Drug Active [facility] Medications This patient has no known medications. Procedures This patient has no known procedures. Encounters Start End Encounter Admission Attending Care Care Encounter Source Date/Time Date/Time Type Type Clinicians Facility Department ID 2020-06-06 2020-06-06 Telephone EMILI Coello [id number] 00:00:00 00:00:00 True Garcia [id number] [place] [id number] [place] [id number] [address] 2020-06-04 2020-06-04 Outpatient R TRUE COELLO [facility] [id number] [facility] 14:59:14 23:59:00 TRUE COELLO [facility] 2020-06-04 2020-06-04 Hospital Mode [facility] [id number] 14:59:14 23:59:00 Encounter True Garcia [id number] [place] [id number] [place] [id number] 2020-05-23 2020-05-23 Office Mode [facility] [id number] 10:21:54 12:02:57 Visit True Garcia [id number] [place] [id number] [facility] [id number] [facility] 092 [facility] 2020-05-23 2020-05-23 Outpatient R TRUE COELLO [facility] [id number] [facility] 10:00:00 10:00:00 TRUE COELLO vivek [facility] Results This patient has no known results.
[2022-02-10 16:03] LABS: SARS-COV-2 RT PCR NEGATIVE (NEGATIVE)
--- NOTE | 2022-02-10 16:45 | ER ---
Nurse's Notes [facility] Name: Oksana Horn Age: 21 yrs Sex: Female : 2000 Arrival Date: 02/10/2022 Time: 14:35 Bed 26 Private MD: Diagnosis: Acute bronchitis, unspecified Presentation: 02/10 14:50 Chief complaint: Patient states: Cough, sore throat, fever, congestion since Tuesday. ll1 Coronavirus screen: Vaccine status: Patient reports being unvaccinated. Client denies travel out of the [place] in the last 14 days. congestion, cough unrelated to allergies, fatigue, fever, headache, sore throat, Client presents with at least one sign or symptom that may indicate coronavirus-19. Standard/surgical mask placed on the client. Ebola Screen: Patient denies travel to an Ebola-affected area in the 21 days before illness onset. Initial Sepsis Screen: Does the patient meet any 2 criteria? No. Patient's initial sepsis screen is negative. Does the patient have a suspected source of infection? Yes: Productive cough/pneumonia. Risk Assessment: Do you want to hurt yourself or someone else? Patient reports no desire to harm self or others. Onset of symptoms was February 06, 2022. 14:50 Method Of Arrival: Ambulatory 1 14:50 Acuity: FRANCE 4 ll1 Triage Assessment: 14:52 General: Appears uncomfortable, Behavior is cooperative, appropriate for age. Pain: ll1 Complains of pain in throat Quality of pain is described as aching. EENT: Reports nasal congestion pain when swallowing. Respiratory: Reports cough that is. Historical: - Allergies: 14:52 No Known Drug Allergies; ll1 - PMHx: 14:52 None; ll1 - PSHx: 14:52 None; ll1 - Immunization history:: Client reports receiving the 2nd dose of the Covid vaccine. - Social history:: Smoking status: Patient denies any tobacco usage or history of. Screenin:58 Abuse screen: Denies threats or abuse. Denies injuries from another. Nutritional eh3 screening: No deficits noted. Tuberculosis screening: No symptoms or risk factors identified. Fall Risk None identified. Assessment: 14:58 General: Appears in no apparent distress. comfortable, Behavior is calm, cooperative, eh3 appropriate for age. Pain: Denies pain. Neuro: Level of Consciousness is awake, alert, obeys commands, Oriented to person, place, time, situation. Cardiovascular: Capillary refill < 3 seconds Patient's skin is warm and dry. Respiratory: Airway is patent Respiratory effort is even, unlabored, Respiratory pattern is regular, symmetrical, Breath sounds are clear bilaterally. GI: No signs and/or symptoms were reported involving the gastrointestinal system. Abdomen is round non-distended. : No signs and/or symptoms were reported regarding the genitourinary system. EENT: Throat is reddened Reports difficulty swallowing nasal congestion. Derm: No signs and/or symptoms reported regarding the dermatologic system. Musculoskeletal: No signs and/or symptoms reported regarding the musculoskeletal system. Range of motion: intact in all extremities. 16:00 Reassessment: Patient and/or family updated on plan of care and expected duration. Pain eh3 level reassessed. Patient is alert, oriented x 3, equal unlabored respirations, skin warm/dry/pink. 17:00 Reassessment: Patient and/or family updated on plan of care and expected duration. Pain eh3 level reassessed. Patient is alert, oriented x 3, equal unlabored respirations, skin warm/dry/pink. Vital Signs: 14:50 BP 131 / 64; Pulse 70; Resp 16; Temp 98.7; Pulse Ox 100% ; Height 5 ft. 3 in. (160.02 ll1 cm); Pain 1/10; 16:00 BP 133 / 67; Pulse 72; Resp 16; Pulse Ox 100% on R/A; eh3 17:00 BP 125 / 61; Pulse 65; Resp 16; Pulse Ox 100% on R/A; eh3 ED Course: 14:35 Patient arrived in ED. as 14:36 [facility] Me[facility]-C [facility] snw 14:36 Anthony Trejo MD is Attending Physician. snw 14:52 Triage completed. ll1 14:52 Arm band placed on Patient placed in an exam room, on a stretcher. ll1 14:58 Patient has correct armband on for positive identification. Bed in low position. Call eh3 light in reach. Side rails up X2. Pulse ox on. NIBP on. Door closed. Noise minimized. Warm blanket given. 14:58 COVID-19/FLU A+B/RSV (Document "Date of Onset" if Symptomatic) Sent. eh3 16:00 Chantel Byrd, RN is Primary Nurse. eh3 17:35 No provider procedures requiring assistance completed. Patient did not have IV access eh3 during this emergency room visit. Administered Medications: 16:53 Drug: predniSONE 20 mg Route: PO; eh3 17:17 Follow up: Response: No adverse reaction eh3 16:53 Drug: Pepcid (famotidine) 20 mg Route: PO; eh3 17:17 Follow up: Response: No adverse reaction eh3 16:53 Drug: ZyrTEC - Cetirizine 10 mg Route: PO; eh3 17:17 Follow up: Response: No adverse reaction eh3 Medication: 17:36 VIS not applicable for this client. eh3 Outcome: 16:45 Discharge ordered by . snrehan 17:35 Discharged to home ambulatory. eh3 17:35 Condition: stable 17:35 Discharge instructions given to patient, Instructed on discharge instructions, follow up and referral plans. medication usage, Demonstrated understanding of instructions, follow-up care, medications, Prescriptions given X 4. 17:36 Patient left the ED. 3 Signatures: Sharon Meza, RIVETER HAND-C RIVETER HAND-Claudette Garcia Lynsay, RN RN ll1 Chantel Byrd, KATHIA RN eh3
--- NOTE | 2022-02-10 16:45 | EDPHYS ---
Physician Documentation [facility] Name: Oksana Horn Age: 21 yrs Sex: Female : 2000 Arrival Date: 02/10/2022 Time: 14:35 Bed 26 Private MD: ED Physician Anthony Trejo HPI: 02/10 19:25 This 21 yrs old Black Female presents to ER via Ambulatory with complaints of Nausea, snw Cough, Fever, Sore Throat, Congestion. 19:25 The patient or guardian reports cough, that is constant, flu symptoms, low-grade fever, snw myalgias, no appetite. Onset: The symptoms/episode began/occurred suddenly, 4 day(s) ago, and became persistent. Severity of symptoms: At their worst the symptoms were moderate. Associated signs and symptoms: Pertinent positives: chest pain, nausea, sore throat. The patient has not experienced similar symptoms in the past. It is unknown whether or not the patient has recently seen a physician. Historical: - Allergies: 14:52 No Known Drug Allergies; ll1 - PMHx: 14:52 None; ll1 - PSHx: 14:52 None; ll1 - Immunization history:: Client reports receiving the 2nd dose of the Covid vaccine. - Social history:: Smoking status: Patient denies any tobacco usage or history of. ROS: 19:25 Eyes: Negative for injury, pain, redness, and discharge, ENT: Negative for injury and snw discharge,+ sore throat Neck: Negative for injury, pain, and swelling, Cardiovascular: Negative for chest pain, palpitations, and edema. 19:25 Respiratory: Negative for shortness of breath, cough, wheezing, and pleuritic chest pain, Abdomen/GI: Negative for abdominal pain, nausea, vomiting, diarrhea, and constipation, Back: Negative for injury and pain, : Negative for injury, bleeding, discharge, and swelling, MS/Extremity: Negative for injury and deformity, Skin: Negative for injury, rash, and discoloration, Neuro: Negative for headache, weakness, numbness, tingling, and seizure, Psych: Negative for depression, anxiety, suicide ideation, homicidal ideation, and hallucinations. 19:25 Constitutional: Positive for body aches, fatigue, fever, malaise, poor PO intake. Exam: 19:25 Head/Face: Normocephalic, atraumatic. Eyes: Pupils equal round and reactive to light, snw extra-ocular motions intact. Lids and lashes normal. Conjunctiva and sclera are non-icteric and not injected. Cornea within normal limits. Periorbital areas with no swelling, redness, or edema. ENT: Nares patent. No nasal discharge, no septal abnormalities noted. Tympanic membranes are normal and external auditory canals are clear. Oropharynx with no redness, swelling, or masses, exudates, or evidence of obstruction, uvula midline. Mucous membranes moist. Neck: Trachea midline, no thyromegaly or masses palpated, and no cervical lymphadenopathy. Supple, full range of motion without nuchal rigidity, or vertebral point tenderness. No Meningismus. Chest/axilla: Normal chest wall appearance and motion. Nontender with no deformity. No lesions are appreciated. Cardiovascular: Regular rate and rhythm with a normal S1 and S2. No gallops, murmurs, or rubs. Normal PMI, no JVD. No pulse deficits. Respiratory: Lungs have equal breath sounds bilaterally, clear to auscultation and percussion. No rales, rhonchi or wheezes noted. No increased work of breathing, no retractions or nasal flaring. Abdomen/GI: Soft, non-tender, with normal bowel sounds. No distension or tympany. No guarding or rebound. No evidence of tenderness throughout. Back: No spinal tenderness. No costovertebral tenderness. Full range of motion. Skin: Warm, dry with normal turgor. Normal color with no rashes, no lesions, and no evidence of cellulitis. MS/ Extremity: Pulses equal, no cyanosis. Neurovascular intact. Full, normal range of motion. Neuro: Awake and alert, GCS 15, oriented to person, place, time, and situation. Cranial nerves II-XII grossly intact. Motor strength 5/5 in all extremities. Sensory grossly intact. Cerebellar exam normal. Normal gait. 19:25 Constitutional: The patient appears alert, awake, uncomfortable. Vital Signs: 14:50 BP 131 / 64; Pulse 70; Resp 16; Temp 98.7; Pulse Ox 100% ; Height 5 ft. 3 in. (160.02 ll1 cm); Pain 1/10; 16:00 BP 133 / 67; Pulse 72; Resp 16; Pulse Ox 100% on R/A; eh3 17:00 BP 125 / 61; Pulse 65; Resp 16; Pulse Ox 100% on R/A; eh3 MDM: 15:42 Patient medically screened. snw 17:25 Data reviewed: vital signs, nurses notes. Data interpreted: Pulse oximetry: on room air snw is 100 %. Interpretation: normal. Counseling: I had a detailed discussion with the patient and/or guardian regarding: the historical points, exam findings, and any diagnostic results supporting the discharge/admit diagnosis, lab results, the need for outpatient follow up, to return to the emergency department if symptoms worsen or persist or if there are any questions or concerns that arise at home. Special discussion: Based on the history and exam findings, there is no indication for further emergent testing or inpatient evaluation. I discussed with the patient/guardian the need to see the primary care provider for further evaluation of the symptoms. 02/10 14:38 Order name: COVID-19/FLU A+B/RSV (Document "Date of Onset" if Symptomatic); Complete snw Time: 16:08 Administered Medications: 16:53 Drug: predniSONE 20 mg Route: PO; 3 17:17 Follow up: Response: No adverse reaction eh3 16:53 Drug: Pepcid (famotidine) 20 mg Route: PO; eh3 17:17 Follow up: Response: No adverse reaction eh3 16:53 Drug: ZyrTEC - Cetirizine 10 mg Route: PO; eh3 17:17 Follow up: Response: No adverse reaction 3 Disposition: 17:58 Co-signature as Attending Physician, Anthony Trejo MD I agree with the assessment and kdr plan of care. Disposition Summary: 02/10/22 16:45 Discharge Ordered Location: Home snw Condition: Stable snw Diagnosis - Acute bronchitis, unspecified snw Followup: snw - With: Emergency Department - When: As needed - Reason: Worsening of condition Followup: snw - With: Private Physician - When: 2 - 3 days - Reason: Recheck today's complaints, Continuance of care, Re-evaluation by your physician Discharge Instructions: - Acute Bronchitis, Adult snw - Rehydration, Adult snw - Discharge Summary Sheet iw Forms: - Work release form iw - Medication Reconciliation Form snw - Thank You Letter snw - Antibiotic Education snw - Prescription Opioid Use snw Prescriptions: - albuterol sulfate 90 mcg/actuation Inhalation HFA aerosol inhaler - inhale 2 puff by INHALATION route every 4-6 hours; 1 vial; Refills: 0, Product snw Selection Permitted - Zyrtec 10 mg Oral Tablet - take 1 tablet by ORAL route once daily As needed; 20 tablet; Refills: 0, snw Product Selection Permitted - Prednisone 20 mg Oral Tablet - take 2 tablets by ORAL route once daily for 5 days; 10 tablet; Refills: 0, snw Product Selection Permitted - Pepcid 20 mg Oral Tablet - take 1 tablet by ORAL route once daily; 20 tablet; Refills: 0, Product snw Selection Permitted Signatures: Dispatcher [employer] EDAnthony Cannon MD MD kdr Waters, Shelly, ROBERTO-Chloe MEJIA-Aricw Edward Carter, RN RN ll1 Chantel Byrd RN RN eh3
[2022-02-10] MEDS ORDERED: CETIRIZINE HCL 5 MG TABLET ONE (16:49)
[2022-02-10] MEDS ORDERED: predniSONE 20 MG TAB ONE (16:49)
[2022-02-10] MEDS ORDERED: FAMOTIDINE 20 MG TAB ONE (16:50)
[2022-02-10 18:29] VITALS: TEMP 98.7; O2SAT 100
[2022-02-10 18:32] VITALS: BP 125/61
== END 2022-02-10 17:36 | disposition home or self-care (01) ==
LOC: ER 14:32
DX: J20.9 Acute bronchitis, unspecified (principal); Z20.822 Contact with and (suspected) exposure to COVID-19
CPT/HCPCS: 0241U; 99284; J7512

== ENCOUNTER 2022-02-11 19:11 | Emergency (ER) | payer OTHER ==
--- OUTSIDE RECORDS SUMMARY | 2022-02-11 19:14 | XMS REPORT | Continuity of Care Document ---
:2000 Author Organization [facility] t Address [address] [place] [address] Care Team Providers Name Role Phone MARLEN ESPARZA Primary Care Physician Unavailable True Coello MD Attending Clinician TRUE COELLO Attending Clinician Unavailable TRUE COELLO Attending Clinician Unavailable TRUE COELLO Admitting Clinician Unavailable Payers Payer Name Policy Type Policy Number Effective Date Expiration Date S jad BRAR [id number] 2019 2022 HEALTH 00:00:00 00:00:00 Problems This patient has no known problems. Allergies, Adverse Reactions, Alerts Allergy Allergy Status Severity Reaction(s) Onset Inactive Treating Comm ents Source Name Type Date Date Clinician NO KNOWN Drug Active [facility] ALLERGIE Class ity of [facility] Medications This patient has no known medications. Procedures This patient has no known procedures. Encounters Start End Encounter Admission Attending Care Care Encounter Source Date/Time Date/Time Type Type Clinicians Facility Department ID 2020-06-06 2020-06-06 Telephone [facility] [place] [id number] 00:00:00 00:00:00 True Garcia [id number] [place] [id number] [place] [id number] [address] 2020-06-04 2020-06-04 [facility] EMILI Coello [id number] 14:59:14 23:59:00 Encounter True Garcia [id number] [place] [id number] [place] [id number] 2020-06-04 2020-06-04 Outpatient TRUE [facility] [id number] [facility] 14:59:14 23:59:[address] [facility] 2020-05-23 2020-05-23 Office Mode [facility] [id number] 10:21:54 12:02:57 Visit True Garcia [id number] [place] [id number] [facility] [id number] [facility] 092 [facility] 2020-05-23 2020-05-23 Outpatient TRUE [facility] [id number] [facility] 10:00:00 10:00:[address] [facility] Results This patient has no known results.
--- NOTE | 2022-02-11 20:41 | ER ---
Nurse's Notes [facility] Name: Oksana Horn Age: 21 yrs Sex: Female : 2000 Arrival Date: 02/11/2022 Time: 19:16 Bed 14 Private MD: Diagnosis: Rash and other nonspecific skin eruption;Viral infection, unspecified Presentation: 02/11 19:47 Chief complaint: Patient states: "There is like little bumps like around my lip. This tw5 morning my lip was kind of swollen, but the bumps are more noticeable now.". Coronavirus screen: Vaccine status: Patient reports being unvaccinated. Ebola Screen: Patient negative for fever greater than or equal to 101.5 degrees Fahrenheit, and additional compatible Ebola Virus Disease symptoms Patient denies exposure to infectious person. Patient denies travel to an Ebola-affected area in the 21 days before illness onset. Initial Sepsis Screen: Does the patient meet any 2 criteria? No. Patient's initial sepsis screen is negative. Does the patient have a suspected source of infection? No. Patient's initial sepsis screen is negative. Risk Assessment: Do you want to hurt yourself or someone else? Patient reports no desire to harm self or others. Onset of symptoms was February 11, 2022 at 07:00. 19:47 Method Of Arrival: Ambulatory tw5 19:47 Acuity: [place] 4 tw5 Triage Assessment: 19:51 General: Appears in no apparent distress. Behavior is calm, cooperative, appropriate tw5 for age, Reports "I brush my teeth and my lips. I noticed my lips swelling a little bit earlier this week, but I noticed the bumps today.". Pain: Pain currently is 2 out of 10 on a pain scale. 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 - Social history:: Smoking status: Patient denies any tobacco usage or history of. Screenin:33 Abuse screen: Denies threats or abuse. Denies injuries from another. Nutritional aa9 screening: No deficits noted. Tuberculosis screening: No symptoms or risk factors identified. Fall Risk None identified. Assessment: 20:15 General: Appears comfortable, Behavior is calm, cooperative, appropriate for age. Pain: aa9 Complains of pain in upper lip. Neuro: Level of Consciousness is awake, alert, obeys commands, Oriented to person, place, time, situation. Cardiovascular: No deficits noted. Respiratory: No deficits noted. GI: No deficits noted. : No deficits noted. EENT: No signs and/or symptoms were reported regarding the EENT system. Derm: Skin is intact, is healthy with good turgor, Reports itching, on the lips. Musculoskeletal: No signs and/or symptoms reported regarding the musculoskeletal system. Vital Signs: 19:47 Pulse 64; Resp 18; Temp 98.6; Pulse Ox 100% on R/A; Weight 77.11 kg; Height 5 ft. 3 in. tw5 (160.02 cm); Pain 0/10; 19:47 BP 119 / 70; tw5 19:47 Body Mass Index 30.11 (77.11 kg, 160.02 cm) tw5 ED Course: 19:16 Patient arrived in ED. ja2 19:30 [facility]-C [facility] snw 19:30 Chase Lagos MD is Attending Physician. snw 19:49 Triage completed. tw5 19:51 Arm band placed on. tw5 20:06 Hansa Baltazar, KATHIA is Primary Nurse. aa9 21:01 Patient has correct armband on for positive identification. Side rails up X2. aa9 21:01 No provider procedures requiring assistance completed. Patient did not have IV access aa9 during this emergency room visit. Administered Medications: No medications were administered Medication: 20:33 VIS not applicable for this client. aa9 Outcome: 20:41 Discharge ordered by . snw 21:01 Discharged to home ambulatory. aa9 21:01 Condition: stable 21:01 Discharge instructions given to patient, Instructed on discharge instructions, follow up and referral plans. Demonstrated understanding of instructions, follow-up care. 21:02 Patient left the ED. aa9 Signatures: Sharon Meza FNP-C FNP-Gabi Simmons ja2 Ina Mathis tw5 Hansa Baltazar, RN RN aa9
--- NOTE | 2022-02-11 20:41 | EDPHYS ---
Physician Documentation [facility] Name: Oksana Horn Age: 21 yrs Sex: Female : 2000 Arrival Date: 02/11/2022 Time: 19:16 Bed 14 Private MD: ED Physician Chase Lagos HPI: 02/11 20:42 This 21 yrs old Black Female presents to ER via Ambulatory with complaints of Bumps on snw Lips. 20:42 Onset: The symptoms/episode began/occurred suddenly, this morning. Associated signs and snw symptoms: Pertinent positives: dx with bronchitis yest. The patient has not experienced similar symptoms in the past. The patient has been recently seen by a physician: The patient has been recently seen at the [facility] Emergency Department, yesterday, for unrelated complaints. 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 - Social history:: Smoking status: Patient denies any tobacco usage or history of. ROS: 20:39 Constitutional: Negative for fever, chills, and weight loss, Eyes: Negative for injury, snw pain, redness, and discharge, ENT: Negative for injury, pain, and discharge, noted tiny bumps to upper lip today Neck: Negative for injury, pain, and swelling, Cardiovascular: Negative for chest pain, palpitations, and edema, Respiratory: Negative for shortness of breath, cough, wheezing, and pleuritic chest pain, Abdomen/GI: Negative for abdominal pain, nausea, vomiting, diarrhea, and constipation, Back: Negative for injury and pain, : Negative for injury, bleeding, discharge, and swelling, MS/Extremity: Negative for injury and deformity, Skin: Negative for injury, rash, and discoloration, Neuro: Negative for headache, weakness, numbness, tingling, and seizure, Psych: Negative for depression, anxiety, suicide ideation, homicidal ideation, and hallucinations. Exam: 20:38 Constitutional: This is a well developed, well nourished patient who is awake, alert, snw and in no acute distress. Head/Face: Normocephalic, atraumatic. Eyes: Pupils equal round and reactive to light, extra-ocular motions intact. Lids and lashes normal. Conjunctiva and sclera are non-icteric and not injected. Cornea within normal limits. Periorbital areas with no swelling, redness, or edema. Neck: Trachea midline, no thyromegaly or masses palpated, and no cervical lymphadenopathy. Supple, full range of motion without nuchal rigidity, or vertebral point tenderness. No Meningismus. Chest/axilla: Normal chest wall appearance and motion. Nontender with no deformity. No lesions are appreciated. Cardiovascular: Regular rate and rhythm with a normal S1 and S2. No gallops, murmurs, or rubs. Normal PMI, no JVD. No pulse deficits. Respiratory: Lungs have equal breath sounds bilaterally, clear to auscultation and percussion. No rales, rhonchi or wheezes noted. No increased work of breathing, no retractions or nasal flaring. Abdomen/GI: Soft, non-tender, with normal bowel sounds. No distension or tympany. No guarding or rebound. No evidence of tenderness throughout. Back: No spinal tenderness. No costovertebral tenderness. Full range of motion. Skin: Warm, dry with normal turgor. Normal color with no rashes, no lesions, and no evidence of cellulitis. MS/ Extremity: Pulses equal, no cyanosis. Neurovascular intact. Full, normal range of motion. Neuro: Awake and alert, GCS 15, oriented to person, place, time, and situation. Cranial nerves II-XII grossly intact. Motor strength 5/5 in all extremities. Sensory grossly intact. Cerebellar exam normal. Normal gait. Psych: Awake, alert, with orientation to person, place and time. Behavior, mood, and affect are within normal limits. 20:38 ENT: Mouth: Lips: mild herpetic madalyn appearing rash to upper lip. Vital Signs: 19:47 Pulse 64; Resp 18; Temp 98.6; Pulse Ox 100% on R/A; Weight 77.11 kg; Height 5 ft. 3 in. tw5 (160.02 cm); Pain 0/10; 19:47 BP 119 / 70; tw5 19:47 Body Mass Index 30.11 (77.11 kg, 160.02 cm) tw5 MDM: 19:57 Patient medically screened. [facility] 20:41 Data reviewed: vital signs, nurses notes. Data interpreted: Pulse oximetry: on room air snw is 100 %. Interpretation: normal. Counseling: I had a detailed discussion with the patient and/or guardian regarding: the historical points, exam findings, and any diagnostic results supporting the discharge/admit diagnosis, the need for outpatient follow up, to return to the emergency department if symptoms worsen or persist or if there are any questions or concerns that arise at home. Special discussion: Based on the history and exam findings, there is no indication for further emergent testing or inpatient evaluation. I discussed with the patient/guardian the need to see the primary care provider for further evaluation of the symptoms. Administered Medications: No medications were administered Disposition Summary: 02/11/22 20:41 Discharge Ordered Location: Home snw Condition: Stable snw Diagnosis - Rash and other nonspecific skin eruption snw - Viral infection, unspecified snw Followup: snw - With: Emergency Department - When: As needed - Reason: Worsening of condition Followup: snw - With: Private Physician - When: 1 week - Reason: Recheck today's complaints, Continuance of care, Re-evaluation by your physician Discharge Instructions: - Discharge Summary Sheet snw - Fever, Adult snw - Rash, Adult snw - Viral Respiratory Infection snw - Rehydration, Adult snw Forms: - Work release form snw - Medication Reconciliation Form snw - Thank You Letter snw - Antibiotic Education snw - Prescription Opioid Use snw Addendum: 02/18/2022 09:57 Co-signature as Attending Physician, Chase Lagos MD I agree with the assessment and c javier plan of care. Signatures: Chase Lagos MD MD cha Waters, Shelly, INCLUSION SPECIALIST-C INCLUSION SPECIALIST-Aricw Ina Mathis tw5
[2022-02-11 21:18] VITALS: BP 119/70; TEMP 98.6; O2SAT 100
== END 2022-02-11 21:02 | disposition home or self-care (01) ==
LOC: ER 19:11
DX: R21 Rash and other nonspecific skin eruption (principal); B34.9 Viral infection, unspecified
CPT/HCPCS: 99281

== ENCOUNTER 2022-09-26 14:24 | Emergency (ER) | payer OTHER ==
--- OUTSIDE RECORDS SUMMARY | 2022-09-26 14:28 | XMS REPORT | Continuity of Care Document ---
:2000 Author Organization [facility] t Address [address] [place] [address] [place] [id number] Care Team Providers Name Role Phone MARLEN ESPARZA Primary Care Physician Unavailable GLENN HUERTA Attending Clinician Unavailable GLENN HUERTA Attending Clinician Unavailable Doctor Unassigned, [place] Attending Clinician Unavailable True Coello MD Attending Clinician TRUE COELLO Attending Clinician Unavailable TRUE COELLO Attending Clinician Unavailable TRUE COELLO Admitting Clinician Unavailable Payers Payer Name Policy Type Policy Number Effective Date Expiration Date Indu [employer] [id number] 2022 00:00:00 Problems Condition Condition Condition Status Onset Resolution Last Treating Co mments Source Name Details Category Date Date Treatment Clinician Date Vaginal Vaginal Disease Active Univers irritation irritation 2- it y of 00:00: [address] BMI BMI Disease Active Univers 36.0-36.9, 36.0-36.9, 2-27 it y of adult adult 00:00: [address] H/O H/O Disease Active Univers guttate guttate 4-07 ity of psoriasis psoriasis 00:00: [address] Allergies, Adverse Reactions, Alerts Allergy Allergy Status Severity Reaction(s) Onset Inactive Treating Comm ents Source Name Type Date Date Clinician NO KNOWN Drug Active Univers ALLERGIE Class ity of S [facility] Social History Social Habit Start Date Stop Date Quantity Comments Source Exposure to 2022-05-21 2022-05-31 Not sure [facility] SARS-CoV-2 00:00:00 11:31:00 [facility] (event) Branch Alcohol intake 2022-05-31 2022-05-31 Current drinker Unive rsity of 00:00:00 00:00:00 of alcohol [facility] (finding) [place] Tobacco use and 2020-05-23 2020-05-23 Smokeless tobacco Un iversity of exposure 00:00:00 00:00:00 non-user [facility] Sex Assigned At [birth year] Universit y of 00:00:00 00:00:00 [facility] Smoking Status Start Date Stop Date Source Never smoked tobacco [facility] Medications Ordered Filled Start Stop Current Ordering Indication Dosage Frequency Signature Comments Components Source Medication Medication Date Date Medication? Clinician (SIG) Name Name metroNIDAZO 2022- No [id number] 500mg Take 1 Univers LE 500 mg 2-28 -08 tablet by ity of tablet 00:00: 05:59 mouth [place] 00 :00 every 12 Medical (twelve) Branch hours for 7 days. metroNIDAZO 2022- No [id number] 500mg Take 1 Univers LE 500 mg 2-28 03-08 tablet by ity of tablet 00:00: 05:59 mouth [place] 00 :00 every 12 Medical ([facility]) Branch hours for 7 days. terconazole 2022- No [id number] 80mg Insert 1 Univers 80 mg 2-28 03-04 Suppositor ity of vaginal 00:00: 05:59 y into [place] suppository 00 :00 vagina at [facility] for 3 days. terconazole 2022- No [id number] 80mg Insert 1 Univers 80 mg 2-28 03-04 Suppositor ity of vaginal 00:00: 05:59 y into [place] suppository 00 :00 vagina at [facility] for 3 days. Vital Signs Vital Name Observation Time Observation Value Comments Source Systolic blood 2022-05-31 19:30:00 121 mm[Hg] Univer sity of pressure [facility] Diastolic blood 2022-05-31 19:30:00 79 mm[Hg] Unive rsity of pressure [facility] Heart rate 2022-05-31 19:30:00 93 /min [facility] Respiratory rate 2022-05-31 19:30:00 18 /min [facility] Body height 2022-05-31 19:30:00 160 cm [facility] Body weight 2022-05-31 19:30:00 92.534 kg [facility] BMI 2022-05-31 19:30:00 36.14 kg/m2 [facility] Procedures Procedure Date / Time Performed Performing Clinician [facility] e ASSIGNMENT OF BENEFITS 2022-05-31 19:04:59 Doctor Unassigned, No [facility] Encounters Start End Encounter Admission Attending Care Care Encounter Source Date/Time Date/Time Type Type Clinicians Facility Department ID 2022-06-10 2022-06-10 Outpatient R GLENN HUERTA [facility] [id number] [facility] 14:30:00 14:30:00 GLENN HUERTA [facility] 2022-06-02 2022-06-02 Telephone Luis Alfredo [facility] [id number] Univers 00:00:00 00:00:00 Glenn FIGUEROA [id number] it y of WOMEN'S [id number] [facility] [employer] [id number] [address] 2022-06-01 2022-06-01 Outpatient R [facility] [id number] Univers 13:30:00 13:30:00 ity of [facility] 2022-06-01 2022-06-01 Case Luis Alfredo [facility] [id number] [facility] 00:00:00 00:00:00 Management Glenn FIGUEROA [id number] ity of WOMEN'S [id number] [employer] [id number] [address] 2022-05-31 2022-05-31 Outpatient R GLENN HUERTA [facility] B [id number] [facility] 13:00:00 13:56:19 GLENN HUERTA [facility] 2022-05-31 2022-05-31 Office Luis Alfredo [facility] [id number] Univers 13:00:00 13:56:19 Visit Glenn FIGUEROA [id number] it y of [place] [id number] [place] [facility] [id number] [facility] 134 Branch 2022-05-31 2022-05-31 Orders Doctor CALVIN [id number] Univers 00:00:00 00:00:00 Only Unassigned, ANTONIO [id number] ity of [place] [facility] 4.2.7.2.686 [place] as [id number] [facility] 009 Branch 2020-06-06 2020-06-06 Telephone [facility] [id number] 00:00:00 00:00:00 True Garcia [id number] [place] [id number] [facility] [id number] 2020-06-04 2020-06-04 [facility] [id number] 14:59:14 23:59:00 Encounter True Garcia [id number] [place] [id number] [place] [id number] 2020-06-04 2020-06-04 Outpatient TRUE STAFFORD [facility] [id number] [facility] 14:59:14 23:59:00 TRUE COELLO [facility] 2020-05-23 2020-05-23 Office Mode [facility] [id number] 10:21:54 12:02:57 Visit True Garcia [id number] [place] [id number] [id number] 2020-05-23 2020-05-23 Outpatient TRUE STAFFORD [facility] [id number] Univers 10:00:00 10:00:00 TRUE COELLO [facility] Results This patient has no known results.
--- NOTE | 2022-09-26 15:28 | RAD REPORT ---
EXAM DESCRIPTION: CT - Head Brain Wo Cont - 09/26/2022 3:21 pm CLINICAL HISTORY: PAIN Headache, drowsiness COMPARISON: HEAD BRAIN W O CONTRAST dated 04/24/2014 TECHNIQUE: All CT scans are performed using dose optimization technique as appropriate and may inclu de automated exposure control or mA/KV adjustment according to patient size. FINDINGS: No intracranial hemorrhage, hydrocephalus or extra-axial fluid collection.No areas of brai n edema or evidence of midline shift. The paranasal sinuses and mastoids are clear. The calvarium is intact. IMPRESSION: No acute intracranial abnormality.
[2022-09-26] MEDS ORDERED: NA CHLORIDE 0.9% 1,000 ML ONE ×2 (15:47→17:36)
[2022-09-26] MEDS ORDERED: ONDANSETRON 4 MG/2 ML VIAL ONE (15:47)
[2022-09-26 16:09] LABS: Absolute Lymphocytes (CBC) 1.9 K/uL (0.7-4.9); Hematocrit 38.2 % (36.0-45.0); Lymphocytes % 12.2 % (15.3-44.8); MCV 82.5 fL (80-100); MPV 7.7 fL (7.6-11.3); RBC Red Blood Cell Count 4.64 M/uL (3.86-4.86)
[2022-09-26 16:15] LABS: Protime INR 1.16
[2022-09-26 16:28] LABS: Albumin 3.7 g/dL (3.4-5.0); Bilirubin Direct 0.2 mg/dL (0-0.2); Bilirubin Indirect, Calculated 0.4 mg/dL (0.2-0.8); Bilirubin Total 0.6 mg/dL (0.2-1.0); Potassium 3.5 mEq/L (3.5-5.1)
[2022-09-26 17:14] LABS: Troponin High Sensitivity 12.4 pg/mL (<58.9)
[2022-09-26] MEDS ORDERED: THIAMINE 200 MG/2 ML INJ ONE (17:35)
[2022-09-26] MEDS ORDERED: MULTIVITAMINS 10 ML VIAL (INJ) IV ONE (17:35)
[2022-09-26] MEDS ORDERED: FOLIC ACID 5 MG/ML VIAL ONE (17:36)
[2022-09-26 18:41] LABS: Specific Gravity > 1.030 (1.005-1.030); Urine Bacteria <20 /HPF (<20); Urine Bilirubin NEGATIVE (Negative); Urine Blood Negative (Negative); Urine Clarity Extremely Turbid (Clear); Urine Color Yellow (Yellow); Urine Glucose NEGATIVE (Negative); Urine Mucus Slight /HPF (None Seen); Urine Protein 1+ (Negative); Urine RBC <5 /HPF (None Seen); Urine Urobilinogen Normal (Normal); Urine pH 5.5 (5.0-7.0)
[2022-09-26 18:43] LABS: Specific Gravity > 1.030 (1.005-1.030)
[2022-09-26 18:48] LABS: Barbiturates NEGATIVE (NEGATIVE); Benzodiazepines NEGATIVE (NEGATIVE); Cocaine NEGATIVE (NEGATIVE); METHAMPHETAM NEGATIVE (NEGATIVE); Methadone NEGATIVE (NEGATIVE); Opiates NEGATIVE (NEGATIVE); Phencyclidine NEGATIVE (NEGATIVE); THC Cannibis POSITIVE (NEGATIVE)
[2022-09-26 20:29] LABS: Albumin 3.2 g/dL (3.4-5.0); Bilirubin Direct 0.1 mg/dL (0-0.2); Bilirubin Indirect, Calculated 0.5 mg/dL (0.2-0.8); Bilirubin Total 0.6 mg/dL (0.2-1.0); Protein, Total 6.8 g/dL (6.4-8.2)
--- NOTE | 2022-09-26 20:55 | ER ---
Nurse's Notes [facility] [place] Name: Oksana Horn Age: 22 yrs Sex: Female : 2000 Arrival Date: 09/26/2022 Time: 14:24 Bed 20 Private MD: Diagnosis: Adjustment disorder with depressed mood-non toxic ingestion, Dayquil Presentation: 09/26 14:26 Chief complaint: EMS states: PT SCRATCHED HERSELF REPEATEDLY AFTER BREAKING UP WITH bp BOYFRIEND LAST PM. PT NOT ANSWERING QUESTIONS OR COOPERATING WITH EMS. 14:27 Coronavirus screen: At this time, the client does not indicate any symptoms associated bp with coronavirus-19. Ebola Screen: No symptoms or risks identified at this time. Initial Sepsis Screen: Does the patient meet any 2 criteria? No. Patient's initial sepsis screen is negative. Does the patient have a suspected source of infection? No. Patient's initial sepsis screen is negative. Risk Assessment: Do you want to hurt yourself or someone else? Patient reports no desire to harm self or others. Onset of symptoms was September 26, 2022. 14:27 Method Of Arrival: EMS: [facility] bp 14:27 Acuity: [place] 3 bp Triage Assessment: 14:29 General: Appears in no apparent distress. Behavior is agitated. Pain: Denies pain. bp EENT: No deficits noted. Neuro: No deficits noted. Cardiovascular: No deficits noted. Respiratory: No deficits noted. GI: No signs and/or symptoms were reported involving the gastrointestinal system. : No signs and/or symptoms were reported regarding the genitourinary system. Derm: No deficits noted. Musculoskeletal: No deficits noted. Historical: - Allergies: 14:29 No Known Allergies; bp - Home Meds: 14:29 None [Active]; bp - PMHx: 14:29 None; bp - Immunization history:: Adult Immunizations unknown. - Social history:: Smoking status: unknown. Screenin:31 [facility] ED Fall Risk Assessment (Adult) History of falling in the last 3 months, bp including since admission No falls in past 3 months (0 pts). Abuse screen: Denies threats or abuse. Denies injuries from another. Nutritional screening: No deficits noted. Tuberculosis screening: No symptoms or risk factors identified. Assessment: 14:31 General: SEE TRIAGE NOTE. bp 19:13 General: Appears in no apparent distress. comfortable, Behavior is calm, cooperative. lg3 Pain: Denies pain. Neuro: No deficits noted. Freitas Agitation-Sedation Scale (RASS): 0 - Alert and Calm Level of Consciousness is awake, alert, obeys commands, Oriented to person, place, time, situation. Cardiovascular: No deficits noted. Denies chest pain, shortness of breath, Capillary refill < 3 seconds Clubbing of nail beds is absent JVD is absent Patient's skin is warm and dry. Respiratory: No deficits noted. Airway is patent Respiratory effort is even, unlabored, Respiratory pattern is regular, symmetrical. GI: No deficits noted. No signs and/or symptoms were reported involving the gastrointestinal system. Abdomen is round non-distended. : No deficits noted. No signs and/or symptoms were reported regarding the genitourinary system. EENT: No deficits noted. No signs and/or symptoms were reported regarding the EENT system. Derm: No deficits noted. No signs and/or symptoms reported regarding the dermatologic system. Skin is intact, is healthy with good turgor, Skin is dry, Skin is normal, Skin temperature is warm. Musculoskeletal: No deficits noted. No signs and/or symptoms reported regarding the musculoskeletal system. Circulation, motion, and sensation intact. Range of motion: intact in all extremities. 20:26 Reassessment: Patient appears in no apparent distress at this time. No changes from lg3 previously documented assessment. Patient and/or family updated on plan of care and expected duration. Pain level reassessed. Patient is alert, oriented x 3, equal unlabored respirations, skin warm/dry/pink. Patient denies pain at this time. 21:14 Reassessment: Patient appears in no apparent distress at this time. No changes from lg3 previously documented assessment. Patient and/or family updated on plan of care and expected duration. Pain level reassessed. Patient is alert, oriented x 3, equal unlabored respirations, skin warm/dry/pink. Patient denies pain at this time. Patient states symptoms have improved. Psych: 21:15 [place] Suicide Severity Screening: In the past month, have you wished you were lg3 or wished you could go to sleep and not wake up? Patient responds "No." "In the past month, have you actually had any thoughts of killing yourself?" Patient responds "no." "In your lifetime, have you ever done anything, started to do anything, or prepared to do anything to end your life?" Patient responds "no.". Subjective: Delusions are denied. Objective: Patient is cooperative. Interventions: Removed personal items and placed in bag. Patient placed in hospital gown. Safety Checks: Personal items have been removed. Pt has been placed in a hallway bed/chair. Pt denies substance abuse. Vital Signs: 14:27 BP 153 / 76; Pulse 85; Resp 16; Temp 98; Pulse Ox 100% ; bp 14:34 BP 153 / 106; Pulse 78; Resp 18; Temp 98.6; Pulse Ox 98% on R/A; bc6 19:13 BP 145 / 88; Pulse 77; Resp 18 S; Pulse Ox 99% on R/A; lg3 21:14 BP 141 / 89; Pulse 71; Resp 17 S; Pulse Ox 99% on R/A; lg3 ED Course: 14:26 Patient arrived in ED. bp 14:29 Triage completed. bp 14:29 Arm band placed on. bp 14:31 Patient has correct armband on for positive identification. Bed in low position. Call bp light in reach. Side rails up X2. 14:32 Roe Lee, KATHIA is Primary Nurse. bp 14:33 Chase Lagos MD is Attending Physician. maddie 15:23 CT Head Brain wo Cont In Process Unspecified. EDMS 15:58 Inserted saline lock: 22 gauge in left hand, using aseptic technique. Blood collected. bp 19:13 Client placed on continuous cardiac and pulse oximetry monitoring. NIBP monitoring lg3 applied. Door closed. Noise minimized. Warm blanket given. 20:00 LFT's: 8 pm Sent. lg3 20:55 Isaiah Cha MD is Referral Physician. cp 21:14 No provider procedures requiring assistance completed. IV discontinued, intact, lg3 bleeding controlled, No redness/swelling at site. Pressure dressing applied. Administered Medications: 15:58 Drug: NS 0.9% IV 1000 ml Route: IV; Rate: 1 bolus; Site: left hand; bp 19:17 Follow up: Response: No adverse reaction; IV Status: Completed infusion; IV Intake: lg3 1000ml 15:58 Drug: Ondansetron IVP 8 mg Route: IVP; Site: left hand; bp 19:16 Follow up: Response: No adverse reaction; Marked relief of symptoms lg3 17:52 Drug: Banana Bag - (NS 0.9% IV 1000 ml, foLIC Acid IVPB 1 mg, Thiamine IV 100 mg, bp Multivitamin IV 1 amp) Route: IV; Rate: 500 ml/hr; Site: left hand; 19:17 Follow up: Response: No adverse reaction; IV Status: Completed infusion; IV Intake: lg3 1000ml Medication: 14:31 VIS not applicable for this client. bp Intake: 19:17 IV: 1000ml; Total: 1000ml. lg3 19:17 IV: 1000ml; Total: 2000ml. lg3 Outcome: 20:55 Discharge ordered by . cp 21:14 Discharged to home ambulatory. lg3 21:14 Condition: stable 21:14 Discharge instructions given to patient, Instructed on discharge instructions, follow up and referral plans. Demonstrated understanding of instructions, follow-up care. 21:15 Patient left the ED. lg3 Signatures: Dispatcher [employer] EDMS Chase Lagos MD MD cha Page, Corey, PA PA Roe Rojo, RN RN [place], RN RN lg3 Sasha Azevedo 6 Corrections: (The following items were deleted from the chart) 20:33 20:00 ACETAMINOPHEN+C.LAB.BRZ drawn and sent. lg3 EDMS 20:33 20:00 ACETAMINOPHEN+C.LAB.BRZ drawn and sent. lg3 EDMS
--- NOTE | 2022-09-26 20:55 | EDPHYS ---
Physician Documentation [facility] Name: Oksana Horn Age: 22 yrs Sex: Female : 2000 Arrival Date: 09/26/2022 Time: 14:24 Bed 20 Private MD: ED Physician Chase Lagos HPI: 09/26 17:17 This 22 yrs old Black Female presents to ER via EMS with complaints of Psych Problem. maddie 17:17 The patient presents to the emergency department with depression, over a relationship. maddie Historical: - Allergies: 14:29 No Known Allergies; bp - Home Meds: 14:29 None [Active]; bp - PMHx: 14:29 None; bp - Immunization history:: Adult Immunizations unknown. - Social history:: Smoking status: unknown. ROS: 17:24 Constitutional: Negative for fever, chills, and weight loss, Eyes: Negative for injury, maddie pain, redness, and discharge, ENT: Negative for injury, pain, and discharge, Neck: Negative for injury, pain, and swelling, Cardiovascular: Negative for chest pain, palpitations, and edema, Respiratory: Negative for shortness of breath, cough, wheezing, and pleuritic chest pain, Abdomen/GI: Negative for abdominal pain, nausea, vomiting, diarrhea, and constipation, Back: Negative for injury and pain, : Negative for injury, bleeding, discharge, and swelling, MS/Extremity: Negative for injury and deformity, Skin: Negative for injury, rash, and discoloration, Psych: Negative for depression, anxiety, suicide ideation, homicidal ideation, and hallucinations, Allergy/Immunology: Negative for hives, rash, and allergies, Endocrine: Negative for neck swelling, polydipsia, polyuria, polyphagia, and marked weight changes, Hematologic/Lymphatic: Negative for swollen nodes, abnormal bleeding, and unusual bruising. 17:24 Neuro: Positive for altered mental status, not coorperative. Exam: 17:24 Constitutional: This is a well developed, well nourished patient who is awake, alert, maddie and in no acute distress. Head/Face: Normocephalic, atraumatic. Eyes: Pupils equal round and reactive to light, extra-ocular motions intact. Lids and lashes normal. Conjunctiva and sclera are non-icteric and not injected. Cornea within normal limits. Periorbital areas with no swelling, redness, or edema. ENT: Nares patent. No nasal discharge, no septal abnormalities noted. Tympanic membranes are normal and external auditory canals are clear. Oropharynx with no redness, swelling, or masses, exudates, or evidence of obstruction, uvula midline. Mucous membranes moist. Neck: Trachea midline, no thyromegaly or masses palpated, and no cervical lymphadenopathy. Supple, full range of motion without nuchal rigidity, or vertebral point tenderness. No Meningismus. Chest/axilla: Normal chest wall appearance and motion. Nontender with no deformity. No lesions are appreciated. Cardiovascular: Regular rate and rhythm with a normal S1 and S2. No gallops, murmurs, or rubs. Normal PMI, no JVD. No pulse deficits. Respiratory: Lungs have equal breath sounds bilaterally, clear to auscultation and percussion. No rales, rhonchi or wheezes noted. No increased work of breathing, no retractions or nasal flaring. Abdomen/GI: Soft, non-tender, with normal bowel sounds. No distension or tympany. No guarding or rebound. No evidence of tenderness throughout. Back: No spinal tenderness. No costovertebral tenderness. Full range of motion. Skin: Warm, dry with normal turgor. Normal color with no rashes, no lesions, and no evidence of cellulitis. MS/ Extremity: Pulses equal, no cyanosis. Neurovascular intact. Full, normal range of motion. Neuro: Awake and alert, GCS 15, oriented to person, place, time, and situation. Cranial nerves II-XII grossly intact. Motor strength 5/5 in all extremities. Sensory grossly intact. Cerebellar exam normal. Normal gait. Psych: Awake, alert, with orientation to person, place and time. Behavior, mood, and affect are within normal limits. 17:24 ECG was reviewed by the Attending Physician. Vital Signs: 14:27 BP 153 / 76; Pulse 85; Resp 16; Temp 98; Pulse Ox 100% ; bp 14:34 BP 153 / 106; Pulse 78; Resp 18; Temp 98.6; Pulse Ox 98% on R/A; bc6 19:13 BP 145 / 88; Pulse 77; Resp 18 S; Pulse Ox 99% on R/A; lg3 21:14 BP 141 / 89; Pulse 71; Resp 17 S; Pulse Ox 99% on R/A; lg3 MDM: 14:33 Patient medically screened. maddie 17:27 Differential diagnosis: depression. Data reviewed: vital signs, nurses notes, lab test maddie result(s), EKG, radiologic studies, CT scan. Consideration of Admission/Observation Escalation of care including admission/observation considered. I considered the following discharge prescriptions or medication management in the emergency department Medications were administered in the Emergency Department. See MAR. Test considered but Not performed: Ultrasound no abd usg. Care significantly affected by the following chronic conditions: no hx. Counseling: I had a detailed discussion with the patient and/or guardian regarding: the historical points, exam findings, and any diagnostic results supporting the discharge/admit diagnosis, lab results, radiology results. 17:43 ED course: poison control # [id number], dw pt not suicidal, sister agrees, will get 8pm maddie level and dc home with follow up. 09/26 14:44 Order name: Acetaminophen; Complete Time: 17: [facility] 09/26 14:44 Order name: Basic Metabolic Panel; Complete Time: 17:06 [facility] 09/26 14:44 Order name: CBC with Diff; Complete Time: 17:06 [facility] 09/26 14:44 Order name: ETOH Level; Complete Time: 17:06 [facility] 09/26 14:44 Order name: Hepatic Function; Complete Time: 17:06 [facility] 09/26 14:44 Order name: PT-INR; Complete Time: 17:06 [facility] 09/26 14:44 Order name: Test, Urine; Complete Time: 20:42 [facility] 09/26 14:44 Order name: Ptt, Activated; Complete Time: 17:06 [facility] 09/26 14:44 Order name: Salicylate; Complete Time: 17:06 [facility] 09/26 14:44 Order name: Urinalysis w/ reflexes; Complete Time: 18:42 [facility] 09/26 14:44 Order name: Urine Drug Screen; Complete Time: 20:42 [facility] 09/26 15:11 Order name: Lipase; Complete Time: 17:20 [facility] 09/26 15:12 Order name: Troponin High Sensitivity; Complete Time: 17:20 [facility] 09/26 17:07 Order name: Tylenol Level; Complete Time: 18:19 [facility] 09/26 17:29 Order name: LFT's: 8 pm; Complete Time: 20:42 [facility] 09/26 17:29 Order name: Tylenol Level: 520pm; Complete Time: 20:42 [facility] 09/26 14:44 Order name: CT Head Brain wo Cont; Complete Time: 15:44 [facility] 09/26 14:44 Order name: EKG; Complete Time: 14:45 [facility] 09/26 14:44 Order name: EKG - Nurse/Tech; Complete Time: 15:58 [facility] 09/26 14:44 Order name: IV Saline Lock; Complete Time: 15:58 [facility] 09/26 14:44 Order name: Labs collected and sent; Complete Time: 15:58 [facility] EC:24 Rate is 63 beats/min. Rhythm is regular. QRS Seaview is Normal. AR interval is normal. QRS maddie interval is normal. QT interval is normal. No Q waves. T waves are Normal. No ST changes noted. Clinical impression: Normal ECG and No evidence of ischemia. Interpreted by me. Reviewed by me. Administered Medications: 15:58 Drug: NS 0.9% IV 1000 ml Route: IV; Rate: 1 bolus; Site: left hand; bp 19:17 Follow up: Response: No adverse reaction; IV Status: Completed infusion; IV Intake: lg3 1000ml 15:58 Drug: Ondansetron IVP 8 mg Route: IVP; Site: left hand; bp 19:16 Follow up: Response: No adverse reaction; Marked relief of symptoms lg3 17:52 Drug: Banana Bag - (NS 0.9% IV 1000 ml, foLIC Acid IVPB 1 mg, Thiamine IV 100 mg, bp Multivitamin IV 1 amp) Route: IV; Rate: 500 ml/hr; Site: left hand; 19:17 Follow up: Response: No adverse reaction; IV Status: Completed infusion; IV Intake: lg3 1000ml Disposition Summary: 09/26/22 20:55 Discharge Ordered Location: Home cp Problem: new cp Symptoms: have improved cp Condition: Stable cp Diagnosis - Adjustment disorder with depressed mood - non toxic ingestion, Dayquil cp Followup: maddie - With: Private Physician - When: 2 - 3 days - Reason: Recheck today's complaints, Continuance of care, Re-evaluation by your physician Followup: maddie - With: - When: 2 - 3 days - Reason: Recheck today's complaints, Re-evaluation by your physician Discharge Instructions: - Discharge Summary Sheet maddie - Adjustment Disorder, Adult maddie - Suicidal Feelings: How to Help Yourself maddie - Helping Someone Who is Suicidal maddie - Adjustment Disorder, Pediatric maddie Forms: - Medication Reconciliation Form cp - Thank You Letter cp - Antibiotic Education cp - Prescription Opioid Use cp Signatures: Dispatcher [employer] EDMS Chase Lagos MD MD cha Page, Corey, PA PA cp Peltier, Brian, RN RN bp More Mcclendon RN lg3 Corrections: (The following items were deleted from the chart) 14:45 14:44 Suicide Screening ([place]) ordered. maddie maddie 20:33 17:21 ACETAMINOPHEN+C.LAB.BRZ ordered. EDMS EDMS 20:33 17:24 ACETAMINOPHEN+C.LAB.BRZ ordered. EDMS EDMS
[2022-09-26 21:27] VITALS: TEMP 98.6
[2022-09-26 21:29] VITALS: O2SAT 99
[2022-09-26 21:30] VITALS: BP 141/89
--- NOTE | 2022-09-27 17:12 | EKG ---
Test Date: 2022-09-26 Test Time: 15:40:56 Material Dispatcher: HARLEEN MEASUREMENT RESULTS: Intervals: Rate: 63 NC: 162 QRSD: 82 QT: 412 QTc: 421 Welches: P: 47 NC: 162 QRS: 69 T: 56 INTERPRETIVE STATEMENTS: Normal sinus rhythm Normal ECG Compared to ECG 08/10/2021 13:49:24 Right-axis deviation no longer present Electronically Signed On 09-27-22 17:10:03 CDT by Kings Vasquez
== END 2022-09-26 21:15 | disposition home or self-care (01) ==
LOC: ER 14:24
DX: F43.21 Adjustment disorder with depressed mood (principal); T50.995A Adverse effect of other drugs, medicaments and biological substances, initial encounter
CPT/HCPCS: 96365; 96361; 93005; 85025; 81001; 80048; 36415; 81025; 85610; 80076 ×2; 85730; 84484; 83690; 80307; 70450; 96375; 99284; 80143 ×3; 80179; 82077; J3411; J2405; J7030 ×2

== ENCOUNTER 2024-04-03 18:10 | Emergency (ER) | payer SELFPAY ==
--- OUTSIDE RECORDS SUMMARY | 2024-04-03 18:14 | XMS REPORT | Continuity of Care Document ---
Author Name Unknown Address [address] [facility] [address] [place] [address] [facility] thconnect Address [address] [facility] [place] [address] Care Team Providers Care Relief Driller Name Role Phone MARLEN ESPARZA Primary Care Physician BENNETT Ascencio Attending Clinician BENNETT Ascencio Attending Clinician GLENN Rodas Attending Clinician GLENN Palafox Attending Clinician Padmaja quiles Doctor Unassigned, Disputanta Attending Clinician U kathy Coello MD, True Laurent Attending Clinician TRUE COELLO Attending Clinician Unavail able TRUE COELLO Attending Clinician Unavail able TRUE COELLO Admitting Clinician Unavail oseas Payers Payer Name Policy Type Policy Number Effective Date Expirati on Date Source [place] [employer] [id number] 2022 00:00:00 Problems Condition Name Condition Details Condition Category Status Onset Date Resolution Date Last Treatment Date Treating Clinician Comments Source Vaginal irritation Vaginal irritation Disease Active 05-31 00:00: 00 [facility] BMI 36.0-36.9, adult BMI 36.0-36.9, adult Disease Active 05-31 00:00: 00 [facility] 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 07-09 00:00: 00 [facility] Allergies, Adverse Reactions, Alerts Allergy Name Allergy Type Status Severity Reaction(s) Onset Date Inactive Date Treating Clinician Comments Source NO KNOWN ALLERGIE S Drug Class Active [facility] Social History Social Habit Start Date Stop Date Quantity Comments Source Exposure to SARS-CoV-2 (event) 2022-05-21 00:00:00 2022-05-31 11:31:00 Not sure [facility] Alcohol intake 2022-05-31 00:00:00 2022-05-31 00:00:00 Current drinker of alcohol (finding) [facility] Tobacco use and exposure 2020-05-23 00:00:00 2020-05-23 00:00:00 Smokeless tobacco non-user [facility] Sex Assigned At 2000 00:00:00 2000 00:00:00 [facility] Smoking Status Start Date Stop Date Source Never smoked tobacco [facility] Medications Ordered Medication Name Filled Medication Name Start Date Stop Date Current Medication? Ordering Clinician Indication Dosage Frequency Signature (SIG) Comments Components Source metroNIDAZO LE 500 mg tablet 06-01 00:00: 00 06-09 05:59 :00 No [id number] 500mg Take 1 tablet by mouth every 12 (twelve) hours for 7 days. [facility] terconazole 80 mg vaginal suppository 06-01 00:00: 00 06-05 05:59 :00 No [id number] 80mg Insert 1 Suppositor y into vagina at bedtime for 3 days. [facility] Vital Signs Vital Name Observation Time Observation Value Comments S jad Systolic blood pressure 2022-05-31 19:30:00 121 mm[Hg] [facility] Diastolic blood pressure 2022-05-31 19:30:00 79 mm[Hg] [facility] Heart rate 2022-05-31 19:30:00 93 /min [facility] Respiratory rate 2022-05-31 19:30:00 18 /min [facility] Body height 2022-05-31 19:30:00 160 cm [facility] Body weight 2022-05-31 19:30:00 92.534 kg [facility] BMI 2022-05-31 19:30:00 36.14 kg/m2 [facility] Procedures Procedure Date / Time Performed Performing Clinicia n Source ASSIGNMENT OF BENEFITS 2022-05-31 19:04:59 Docto r Unassigned, Disputanta [facility] Encounters Start Date/Time End Date/Time Encounter Type Admission Type Attending Clinicians Care Facility Care Department Encounter ID Source 2023-02-22 15:00:00 2023-02-22 15:00:00 Outpatient R BREAUX-CECILLE S, BENNETT [facility] [id number] [facility] 2023-02-22 11:00:00 2023-02-22 11:00:00 Outpatient R NAMITA-CECILLE S, BENNETT [facility], [facility] [id number] [facility] 2022-06-10 14:30:00 2022-06-10 14:30:00 Outpatient R GLENN HUERTA [facility] [id number] [facility] 2022-06-02 00:00:00 2022-06-02 00:00:00 Telephone Glenn Huerta [facility] [id number] [facility] 2022-06-01 13:30:00 2022-06-01 13:30:00 Outpatient [facility] [id number] [facility] 2022-06-01 00:00:00 2022-06-01 00:00:00 Case Management Glenn Huerta [facility] 1..[id number] [facility] 2022-05-31 13:00:00 2022-05-31 13:56:19 Outpatient R TRITSGLENN HERNANDEZ [facility] [id number] [facility] 2022-05-31 13:00:00 2022-05-31 13:56:19 Office Visit Glenn Huerta [facility] [id number] [facility] 2022-05-31 00:00:00 2022-05-31 00:00:00 Orders Only Doctor Unassigned, Disputanta [facility] [id number] [id number] [facility] 2020-06-06 00:00:00 2020-06-06 00:00:00 Telephone True Coello [facility] [id number] 2020-06-04 14:59:14 2020-06-04 23:59:00 Hospital Encounter True Coello [facility] [id number] 2020-06-04 14:59:14 2020-06-04 23:59:00 Outpatient TRUE [facility] [id number] [facility] 2020-05-23 10:21:54 2020-05-23 12:02:57 Office Visit True Coello [facility] [id number] 2020-05-23 10:00:00 2020-05-23 10:00:00 Outpatient TRUE [facility] [id number] [facility]
[2024-04-03] MEDS ORDERED: dexAMETHasone 10 MG/ML VIAL ONE (18:28)
[2024-04-03] MEDS ORDERED: MAGNES/ALUMIN/SIMET 30ML UCUP ONE (18:28)
--- NOTE | 2024-04-03 18:31 | ER ---
Nurse's Notes [facility] Name: Oksana Horn Age: 23 yrs Sex: Female : 2000 Arrival Date: 04/03/2024 Time: 18:10 Bed 10 Private MD: Diagnosis: Acute tonsillitis, unspecified Presentation: 04/03 18:25 Chief complaint: Patient states: sore throat started yesterday, headache, no fever. ko1 Coronavirus screen: At this time, the client does not indicate any symptoms associated with coronavirus-19. Ebola Screen: No symptoms or risks identified at this time. Initial Sepsis Screen: Does the patient meet any 2 criteria? No. Patient's initial sepsis screen is negative. Does the patient have a suspected source of infection? No. Patient's initial sepsis screen is negative. Risk Assessment: Do you want to hurt yourself or someone else? Patient reports no desire to harm self or others. Onset of symptoms was April 03, 2024. 18:25 Method Of Arrival: Ambulatory ko1 18:25 Acuity: [place] 4 ko1 Triage Assessment: 18:28 General: Appears in no apparent distress. uncomfortable, Behavior is calm, cooperative, ko1 appropriate for age. Pain: Complains of pain in throat. EENT: Reports difficulty swallowing. Historical: - Allergies: 18:28 No Known Allergies; ko1 - Home Meds: 18:28 None [Active]; ko1 - PMHx: 18:28 None; ko1 - PSHx: 18:28 None; ko1 - Immunization history:: Adult Immunizations up to date. - Infectious Disease History:: Denies. - Social history:: Smoking status: Patient denies any tobacco usage or history of. Screenin:45 [facility] ED Fall Risk Assessment (Adult) History of falling in the last 3 months, ld1 including since admission No falls in past 3 months (0 pts) Confusion or Disorientation No (0 pts) Intoxicated or Sedated No (0 pts) Impaired Gait No (0 pts) Mobility Assist Device Used No (0 pt) Altered Elimination No (0 pt) Score/Fall Risk Level 0 - 2 = Low Risk Oriented to surroundings, Maintained a safe environment, Educated pt \T\ family on fall prevention, incl call for assistance when getting out of bed, Assessed \T\ reinforced patient's understanding of fall precautions, Provided non-skid footwear, Hourly rounding (assess needs \T\ fall precautionary measures) done, Used ambulatory aids as needed (educated on \T\ assisted with), Used gait belt as appropriate. Abuse screen: Denies threats or abuse. Denies injuries from another. Nutritional screening: No deficits noted. Tuberculosis screening: No symptoms or risk factors identified. Assessment: 18:44 General: Appears in no apparent distress. comfortable, Behavior is calm, cooperative, ld1 appropriate for age. Pain: Denies pain. Neuro: Level of Consciousness is awake, alert, obeys commands, Oriented to person, place, time, situation, Appropriate for age. Cardiovascular: Capillary refill < 3 seconds Patient's skin is warm and dry. Respiratory: Airway is patent Respiratory effort is even, unlabored, Breath sounds are clear. GI: Abdomen is round non-distended. : No signs and/or symptoms were reported regarding the genitourinary system. EENT: Throat swollen. Reports. EENT: Throat is pink is reddened. Derm: No signs and/or symptoms reported regarding the dermatologic system. Vital Signs: 18:25 BP 125 / 99; Pulse 78; Resp 16; Temp 97.4; Pulse Ox 100% ; ko1 18:44 BP 121 / 84; Pulse 79; Resp 18; Pulse Ox 100% on R/A; ld1 ED Course: 18:14 Patient arrived in ED. im 18:16 [facility] Bloom [facility] kb 18:16 Niraj Flores MD is Attending Physician. kb 18:28 Triage completed. ko1 18:28 Arm band placed on right wrist. Patient placed in an exam room, on a stretcher, Patient ko1 notified of wait time. 18:45 Patient has correct armband on for positive identification. Placed in gown. Bed in low ld1 position. Call light in reach. Side rails up X2. case monitor on. Pulse ox on. NIBP on. Door closed. Noise minimized. Warm blanket given. 18:45 No provider procedures requiring assistance completed. Patient did not have IV access ld1 during this emergency room visit. Administered Medications: 18:43 Drug: Dexamethasone IM 10 mg IM once Route: IM; Site: right deltoid; ld1 18:44 Follow up: Response: No adverse reaction ld1 18:43 Drug: Amoxicillin-Clavulanate PO 875 mg PO once Route: PO; ld1 18:44 Follow up: Response: No adverse reaction ld1 18:44 Drug: GI Cocktail without - (Maalox PO 30 ml, Lidocaine Mucous Membrane 2 % 15 ld1 ml) PO once Route: PO; 18:44 Follow up: Response: No adverse reaction ld1 Medication: 18:48 VIS not applicable for this client. ld1 Outcome: 18:30 Discharge ordered by . sharonda 18:47 Discharged to home ambulatory, ld1 18:47 Condition: stable 18:47 Discharge instructions given to patient, Instructed on discharge instructions, follow up and referral plans. Demonstrated understanding of instructions, follow-up care, 18:48 Patient left the ED. ld1 Signatures: Neeru Bloom, SANDBLAST CARVER-C SANDBLAST CARVER-Josefa Parish RN RN ld1 Darling James RN RN ko1 Jillian Araujo
--- NOTE | 2024-04-03 18:31 | EDPHYS ---
Physician Documentation [facility] Name: Oksana Horn Age: 23 yrs Sex: Female : 2000 Arrival Date: 04/03/2024 Time: 18:10 Bed 10 Private MD: ED Physician Niraj Flores HPI: 04/03 18:29 This 23 yrs old Black Female presents to ER via Ambulatory with complaints of Sore kb Throat, swollen tonsils. 18:29 Patient is a 23-year-old female who presents for sore throat that started yesterday got kb worse today. Reports headache. Denies fever cough, congestion. Pain aggravated by swallowing. No alleviating factors.. Historical: - Allergies: 18:28 No Known Allergies; ko1 - Home Meds: 18:28 None [Active]; ko1 - PMHx: 18:28 None; ko1 - PSHx: 18:28 None; ko1 - Immunization history:: Adult Immunizations up to date. - Infectious Disease History:: Denies. - Social history:: Smoking status: Patient denies any tobacco usage or history of. ROS: 18:28 Constitutional: As per HPI kb Exam: 18:28 Constitutional: This is a well developed, well nourished patient who is awake, alert, kb and in no acute distress. Head/Face: Normocephalic, atraumatic. Cardiovascular: Regular rate Respiratory: Respirations even and unlabored. No increased work of breathing. Talking in full sentences Skin: Warm, dry with normal turgor. Normal color. MS/ Extremity: Pulses equal, no cyanosis. Neurovascular intact. Full, normal range of motion. Neuro: Awake and alert, GCS 15, oriented to person, place, time, and situation. 18:28 ENT: Posterior pharynx: Airway: normal, no evidence of obstruction, Tonsils: bilaterally enlarged, with erythema, Uvula: normal, midline, swelling, that is moderate, erythema, that is moderate, exudate, is not appreciated, Vital Signs: 18:25 BP 125 / 99; Pulse 78; Resp 16; Temp 97.4; Pulse Ox 100% ; ko1 18:44 BP 121 / 84; Pulse 79; Resp 18; Pulse Ox 100% on R/A; ld1 MDM: 18:16 Medical Screening Exam initiated kb 18:28 Differential diagnosis: peritonsillar abscess pharyngitis, tonsillitis. Data reviewed: kb vital signs, nurses notes. Test considered but Not performed: CT: ct soft tissue neck considered but no abscess appreciated, tonsils enlarged bilaterally without exudate. Counseling: I had a detailed discussion with the patient and/or guardian regarding the historical points, exam findings, and any diagnostic results supporting the discharge/admit diagnosis, the need for outpatient follow up, a family practitioner, to return to the emergency department if symptoms worsen or persist or if there are any questions or concerns that arise at home. 04/03 18:28 Order name: Strep kb Administered Medications: 18:43 Drug: Dexamethasone IM 10 mg IM once Route: IM; Site: right deltoid; ld1 18:44 Follow up: Response: No adverse reaction ld1 18:43 Drug: Amoxicillin-Clavulanate PO 875 mg PO once Route: PO; ld1 18:44 Follow up: Response: No adverse reaction ld1 18:44 Drug: GI Cocktail without - (Maalox PO 30 ml, Lidocaine Mucous Membrane 2 % 15 ld1 ml) PO once Route: PO; 18:44 Follow up: Response: No adverse reaction ld1 Disposition Summary: 04/03/24 18:30 Discharge Ordered Notes: Location: Home Condition: Stable Diagnosis - Acute tonsillitis, unspecified kb Followup: kb - With: Emergency Department - When: As needed - Reason: Worsening of condition Followup: kb - With: Private Physician - When: 2 - 3 days - Reason: Recheck today's complaints, Continuance of care, Re-evaluation by your physician Discharge Instructions: - Discharge Summary Sheet kb - Tonsillitis, [id number] kb Forms: - Medication Reconciliation Form kb - Antibiotic Education kb - Prescription Opioid Use kb - Patient Portal Instructions kb - Leadership Thank You Letter kb Prescriptions: - Augmentin 875-125 mg Oral Tablet - take 1 tablet ORAL route every 12 hours for 10 days; 20 tablet; Refills: 0, kb Product Selection Permitted Signatures: Dispatcher [employer] Neeru Werner FNP-C FNP-Ckb Sims, Lauren RN RN ld1 Darling James RN RN ko1
[2024-04-03] MEDS ORDERED: LIDOCAINE VISCOUS 2% 10ML ORAL SOLN ONE (18:34)
[2024-04-03] MEDS ORDERED: AMOX/K CLAV 875 MG TAB ONE (18:34)
[2024-04-04 01:21] VITALS: TEMP 97.4; O2SAT 100
[2024-04-04 01:23] VITALS: BP 121/84
== END 2024-04-03 18:48 | disposition home or self-care (01) ==
LOC: ER 18:10
DX: J03.90 Acute tonsillitis, unspecified (principal)
CPT/HCPCS: 87081; 96372; 99284; J1100